=== PATIENT | male | born 1995 | race Two or more races ===

== ENCOUNTER 2018-10-01 01:01 | Emergency (ER) | payer BC, OTHER ==
[~2018-10-01] VITALS: Ht 175.3 cm; Wt 52.2 kg
[2018-10-01 01:11] VITALS: BP 138/91
[2018-10-01 01:33] LABS: Basophils # (auto) 0.1 uL; Basophils % (auto) 1.6 % (0.0-2.0); Eosinophils # (auto) 0 uL; Hematocrit 48.1 % (41.0-53.0); Hemoglobin 16.5 g/dL (13.5-17.5); Lymphocytes # (auto) 0.4 uL; Lymphocytes % (auto) 5.7 % (10.0-50.0); Mean Corpuscular Hemoglobin 31.9 pg (28.0-32.0); Mean Corpuscular Hgb Conc. 34.4 g/dL (32.0-36.0); Mean Corpuscular Volume 92.7 fL (80.0-100.0); Monocytes # (auto) 0.5 uL; Monocytes % (auto) 6.9 % (0.0-12.0); Neutrophils # (auto) 6.5 uL; Neutrophils % (auto) 85.8 % (37.0-80.0); Nucleated Red Blood Cells % 0.1 %; Platelet Count (auto) 255 10^3/uL (140-450); Red Blood Cells 5.19 10^6/uL (4.5-5.90); Red Cell Distribution Width 13.3 % (11.8-14.3); White Blood Cell 7.5 10^3/uL (4.4-10.8)
[2018-10-01 01:52] LABS: Albumin 3.9 g/dL (3.4-5.0); Potassium 4.1 mmol/L (3.5-5.1)
[2018-10-01 01:55] LABS: BUN/Creatinine Ratio 7.2; Calcium 9.1 mg/dL (8.5-10.1)
[2018-10-01 02:00] LABS: Bilirubin, Total 1.2 mg/dL (0.2-1.0); Total Protein 8.3 g/dL (6.4-8.2)
== END 2018-10-02 02:31 | disposition left against medical advice (07) ==
LOC: ER 01:05
DX: R10.9 Unspecified abdominal pain (principal); Z53.21 Procedure and treatment not carried out due to patient leaving prior to being seen by health care provider
CPT/HCPCS: 36415; 80053; 83690; 85025

== ENCOUNTER 2018-11-15 15:17 | Inpatient (IN) | payer BC ==
[~2018-11-15] VITALS: Ht 205.7 cm; Wt 52.2 kg
[2018-11-15] MEDS ORDERED: SODIUM CHLORIDE 0.9% 1,000 ML IV ONE ×2 (15:52)
[2018-11-15 16:15] LABS: Basophils # (auto) 0.1 uL; Basophils % (auto) 1.2 % (0.0-2.0); Eosinophils # (auto) 0.2 uL; Eosinophils % (auto) 2.8 % (0.0-7.0); Hematocrit 41.1 % (41.0-53.0); Hemoglobin 13.7 g/dL (13.5-17.5); Lymphocytes # (auto) 1.6 uL; Lymphocytes % (auto) 29.7 % (10.0-50.0); Mean Corpuscular Hemoglobin 30.3 pg (28.0-32.0); Mean Corpuscular Hgb Conc. 33.3 g/dL (32.0-36.0); Mean Corpuscular Volume 90.8 fL (80.0-100.0); Monocytes # (auto) 0.5 uL; Monocytes % (auto) 8.8 % (0.0-12.0); Neutrophils # (auto) 3.1 uL; Neutrophils % (auto) 57.5 % (37.0-80.0); Nucleated Red Blood Cells % 0.2 %; Platelet Count (auto) 238 10^3/uL (140-450); Red Blood Cells 4.52 10^6/uL (4.5-5.90); Red Cell Distribution Width 13.5 % (11.8-14.3); White Blood Cell 5.4 10^3/uL (4.4-10.8)
[2018-11-15 16:27] LABS: Albumin 3.7 g/dL (3.4-5.0); BUN/Creatinine Ratio 23.3; Calcium 8.9 mg/dL (8.5-10.1); Potassium 4.4 mmol/L (3.5-5.1)
[2018-11-15 16:29] LABS: Amylase 77 U/L (25-115); Bilirubin, Total 0.2 mg/dL (0.2-1.0); Lipase 218 U/L (73-393); Total Protein 7.9 g/dL (6.4-8.2)
[2018-11-15 17:41] LABS: Urine WBC None Seen /hpf (0 - 3)
[2018-11-15] MEDS ORDERED: ONDANSETRON HCL 4 MG/2 ML VIAL IV ONE ×2 (17:45→21:00)
[2018-11-15] MEDS ORDERED: MORPHINE SULFATE 4 MG/ML SYR/VIAL IV ONE ×2 (17:45→21:00)
[2018-11-15 17:59] LABS: Urine Bacteria NONE SEEN /hpf (None Seen); Urine Blood Negative /uL (Negative); Urine Specific Gravity 1.012 (1.001-1.035)
[2018-11-15] MEDS ORDERED: ONDANSETRON HCL 4 MG/2 ML VIAL IV PRN (22:15)
[2018-11-15] MEDS: SODIUM CHLORIDE 0.9% 1,000 ML IV SCH (22:15)
[2018-11-15] MEDS ORDERED: ACETAMINOPHEN 500 MG TAB PO PRN (22:15)
[2018-11-15] MEDS: metroNIDAZOLE 500MG/100ML 100 ML IV SCH (22:42)
[2018-11-15 23:30] VITALS: BP 124/66
[2018-11-16] MEDS: HYDROmorphone HCL 2 MG/ML VL IV PRN ×3 (00:11→09:20)
[2018-11-16 00:30] VITALS: BP 124/66
[2018-11-16 05:00] VITALS: BP 112/58
[2018-11-16] MEDS: metroNIDAZOLE 500MG/100ML 100 ML IV SCH ×2 (05:33→13:38)
[2018-11-16 06:40] LABS: Basophils # (auto) 0.1 uL; Basophils % (auto) 1.6 % (0.0-2.0); Eosinophils # (auto) 0.2 uL; Eosinophils % (auto) 5.4 % (0.0-7.0); Hematocrit 36.6 % (41.0-53.0); Hemoglobin 12.7 g/dL (13.5-17.5); Lymphocytes # (auto) 1.4 uL; Lymphocytes % (auto) 35.2 % (10.0-50.0); Mean Corpuscular Hemoglobin 30.9 pg (28.0-32.0); Mean Corpuscular Hgb Conc. 34.6 g/dL (32.0-36.0); Mean Corpuscular Volume 89.4 fL (80.0-100.0); Monocytes # (auto) 0.5 uL; Monocytes % (auto) 12.9 % (0.0-12.0); Neutrophils # (auto) 1.8 uL; Neutrophils % (auto) 44.9 % (37.0-80.0); Nucleated Red Blood Cells % 0.1 %; Platelet Count (auto) 205 10^3/uL (140-450); Red Blood Cells 4.09 10^6/uL (4.5-5.90); White Blood Cell 3.9 10^3/uL (4.4-10.8)
[2018-11-16 06:51] LABS: BUN/Creatinine Ratio 21.3; Calcium 8.3 mg/dL (8.5-10.1)
--- NOTE | 2018-11-16 08:30 | NUR ---
RE: DIET PATIENT IS CURRENTLY ON A LIQUID DIET. PATIENT TOLERATING FOOD WELL, NO NAUSEA OR VOMITING.
[2018-11-16 09:00] VITALS: BP 108/53
[2018-11-16] MEDS: SODIUM CHLORIDE 0.9% 1,000 ML IV SCH ×2 (09:37→18:46)
[2018-11-16] MEDS ORDERED: LEVOFLOXACIN 500MG 100 ML IV SCH (10:00)
--- NOTE | 2018-11-16 12:04 | NUR ---
RE: DIET PATIENT ON A CLEAR LIQUID DIET. PATIENT HAS BEEN TOLERATING FOOD WELL, NO NAUSEA OR VOMITING. PER MD CAN ADVANCE TO SOFT FOODS IF TOLERATING FOOD WELL. ORDERS WILL BE FOLLOWED.
[2018-11-16] MEDS ORDERED: HYDROcodone-ACET 10/325MG TAB PO PRN (12:45)
[2018-11-16 13:00] VITALS: BP 109/69
--- NOTE | 2018-11-16 16:19 | NUR ---
Re: Pain medication Patient stated that they are experience itchiness all over their body. Patient stated that that's how they get when they take norco at home. Patient received norco at 1338. Assess patient is not experiencing SOB or nausea or vomiting or chest pain. Will contact MD for further evaluation.
[2018-11-16 17:00] VITALS: BP 109/45
[2018-11-16] MEDS ORDERED: diphenhdrAMINE HCL 25 MG CAP PO PRN (17:00)
--- NOTE | 2018-11-16 19:50 | NUR ---
pt stated he was going to leav the hospital. educated the pt on the need to stay. pt verbalized understanding but still wanted to leave. pt signed AMA. paged Dr. Rosa. awaiting call back.
--- NOTE | 2018-11-16 20:00 | NUR ---
notified the Dr. Rosa. called and notified feeder worker power unit operator Helen. PT iv removed. pt left with his grandmother.
== END 2018-11-16 20:00 | disposition left against medical advice (07) | DRG 440 ==
LOC: ER 15:17 → OVERFLOW 15:18 → WEST WING 23:17
PROVIDERS: ADMIT Nurse Practitioner Family; ATTEND Nurse Practitioner Family
PROC: 02HV33Z Insertion of Infusion Device into Superior Vena Cava, Percutaneous Approach (ICD-10-PCS; principal; 2018-11-15)
DX: K86.3 Pseudocyst of pancreas (principal); Z72.0 Tobacco use; Z87.19 Personal history of other diseases of the digestive system; Z53.21 Procedure and treatment not carried out due to patient leaving prior to being seen by health care provider
CPT/HCPCS: 36415; 71046; 74176; 80048; 80053; 81001; 82150; 83690; 85025; 87081; 96374; 96375; 96376; G0378; J1956; J2405; J3490

== ENCOUNTER 2018-11-27 01:04 | Emergency (ER) | payer BC ==
[~2018-11-27] VITALS: Ht 175.3 cm; Wt 52.2 kg
[2018-11-27] MEDS ORDERED: IOHEXOL 350 MG/ML 100ML IJ ONE (01:26)
[2018-11-27 02:08] LABS: Basophils # (auto) 0 uL; Basophils % (auto) 0.8 % (0.0-2.0); Eosinophils # (auto) 0 uL; Eosinophils % (auto) 0.6 % (0.0-7.0); Hematocrit 41.7 % (41.0-53.0); Hemoglobin 14.1 g/dL (13.5-17.5); Lymphocytes # (auto) 2.8 uL; Lymphocytes % (auto) 45.4 % (10.0-50.0); Mean Corpuscular Hemoglobin 30.2 pg (28.0-32.0); Mean Corpuscular Hgb Conc. 33.9 g/dL (32.0-36.0); Monocytes # (auto) 0.5 uL; Monocytes % (auto) 7.8 % (0.0-12.0); Neutrophils # (auto) 2.8 uL; Neutrophils % (auto) 45.4 % (37.0-80.0); Nucleated Red Blood Cells % 0.1 %; Platelet Count (auto) 300 10^3/uL (140-450); Red Blood Cells 4.68 10^6/uL (4.5-5.90); Red Cell Distribution Width 13.2 % (11.8-14.3); White Blood Cell 6.2 10^3/uL (4.4-10.8)
[2018-11-27] MEDS ORDERED: MORPHINE SULFATE 4 MG/ML SYR/VIAL IV ONE (02:15)
[2018-11-27] MEDS ORDERED: ONDANSETRON HCL 4 MG/2 ML VIAL IV ONE (02:15)
[2018-11-27 02:28] LABS: Albumin 3.9 g/dL (3.4-5.0); Calcium 7.5 mg/dL (8.5-10.1); Chloride 108 mmol/L (98-107); Sodium 144 mmol/L (136-145)
[2018-11-27 02:31] LABS: Alanine Aminotransferase 93 U/L (16-61); Anion Gap 13 (5-15); Aspartate Aminotransferase 58 U/L (15-37); Blood Urea Nitrogen 5 mg/dL (7-18); Carbon Dioxide 23 mmol/L (21-32); GFR African American 180 mL/min; GFR Non-African American 149 mL/min; Glucose 108 mg/dL (74-106); INR 0.94 (0.9-1.15); Magnesium 2.4 mg/dL (1.6-2.6); Partial Thromboplastin Time 24.5 sec (23.64-32.05)
[2018-11-27 02:36] LABS: Alkaline Phosphatase 102 U/L (45-117); Bilirubin, Total 0.2 mg/dL (0.2-1.0); Total Protein 7.9 g/dL (6.4-8.2)
[2018-11-27] MEDS ORDERED: HYDROmorphone HCL 2 MG/ML VL IV ONE (02:45)
[2018-11-27] MEDS ORDERED: LORazepam 2MG/ML-1ML VIAL IV ONE (04:00)
[2018-11-27] MEDS ORDERED: HYDROcodone-ACET 5/325MG TAB PO ONE (06:30)
[2018-11-27] MEDS ORDERED: POTASSIUM EFFERVESENT TAB 25 MEQ PO ONE (07:45)
[2018-11-27 08:54] VITALS: BP 123/93
[2018-11-27] MEDS ORDERED: PROMETHAZINE HCL 25 MG/ML 1ML IV ONE (09:30)
== END 2018-11-27 10:29 | disposition home or self-care (01) ==
LOC: ER 01:05
DX: R07.89 Other chest pain (principal); M79.641 Pain in right hand; K86.2 Cyst of pancreas
CPT/HCPCS: 36415; 71275; 80053; 83690; 83735; 84484; 85025; 85379; 85610; 85730; 93005; 93971; 96374; 96375; 99284; J1170; J2060; J2270; J2405; J2550; Q9967

== ENCOUNTER 2018-12-10 01:53 | Inpatient (IN) | payer BC ==
[~2018-12-10] VITALS: Ht 175.3 cm; Wt 62.4 kg
[2018-12-10 02:37] LABS: Basophils # (auto) 0.1 uL; Basophils % (auto) 1.2 % (0.0-2.0); Eosinophils # (auto) 0.1 uL; Eosinophils % (auto) 2.1 % (0.0-7.0); Hematocrit 42.1 % (41.0-53.0); Hemoglobin 14.6 g/dL (13.5-17.5); Lymphocytes # (auto) 1.2 uL; Lymphocytes % (auto) 29.6 % (10.0-50.0); Mean Corpuscular Hemoglobin 30.8 pg (28.0-32.0); Mean Corpuscular Hgb Conc. 34.7 g/dL (32.0-36.0); Mean Corpuscular Volume 88.9 fL (80.0-100.0); Monocytes # (auto) 0.5 uL; Monocytes % (auto) 11.5 % (0.0-12.0); Neutrophils # (auto) 2.3 uL; Neutrophils % (auto) 55.6 % (37.0-80.0); Nucleated Red Blood Cells % 0.1 %; Platelet Count (auto) 255 10^3/uL (140-450); Red Blood Cells 4.73 10^6/uL (4.5-5.90); Red Cell Distribution Width 13.2 % (11.8-14.3); White Blood Cell 4.2 10^3/uL (4.4-10.8)
[2018-12-10 02:55] LABS: Albumin 3.6 g/dL (3.4-5.0); Anion Gap 12 (5-15); Calcium 8.1 mg/dL (8.5-10.1); Carbon Dioxide 24 mmol/L (21-32); Chloride 108 mmol/L (98-107); Glucose 101 mg/dL (74-106); Potassium 3.6 mmol/L (3.5-5.1); Sodium 144 mmol/L (136-145)
[2018-12-10 03:01] LABS: Alanine Aminotransferase 126 U/L (16-61); Alkaline Phosphatase 112 U/L (45-117); Aspartate Aminotransferase 90 U/L (15-37); BUN/Creatinine Ratio 13.4; Bilirubin, Total < 0.1 mg/dL (0.2-1.0); Blood Urea Nitrogen 9 mg/dL (7-18); GFR African American 193 mL/min; GFR Non-African American 159 mL/min; Total Protein 7.8 g/dL (6.4-8.2)
[2018-12-10] MEDS ORDERED: MORPHINE SULFATE 4 MG/ML SYR/VIAL IV ONE ×3 (04:45→07:15)
[2018-12-10] MEDS ORDERED: ONDANSETRON HCL 4 MG/2 ML VIAL IV ONE ×2 (04:45→06:15)
[2018-12-10 05:16] LABS: Urine Bacteria FEW /hpf (None Seen); Urine Blood Negative /uL (Negative); Urine Hyaline Cast FEW /lpf (0 - 2); Urine Mucus FEW (None Seen); Urine Specific Gravity 1.024 (1.001-1.035); Urine WBC 2 /hpf (0 - 3)
[2018-12-10 05:27] LABS: Amphetamine Screen, Urine NEGATIVE (NEGATIVE); Barbiturate Scree,Urine NEGATIVE (NEGATIVE); Benzodiazephine Screen, Urine NEGATIVE (NEGATIVE); Cannabinoid Screen, Urine POSITIVE (NEGATIVE); Cocaine Screen, Urine NEGATIVE (NEGATIVE); Opiate Scree,Urine NEGATIVE (NEGATIVE); Phencyclidine Screen, Urine NEGATIVE (NEGATIVE)
[2018-12-10 05:27] LABS: Amylase 88 U/L (25-115); Lipase 168 U/L (73-393)
[2018-12-10] MEDS ORDERED: IOHEXOL 350 MG/ML 100ML IJ ONE (06:15)
[2018-12-10] MEDS ORDERED: SODIUM CHLORIDE 0.9% 1,000 ML IV ONE ×2 (07:04)
[2018-12-10] MEDS ORDERED: THIAMINE 100mg/ml INJ (200mg/2ml VIAL) IV ONE (07:15)
[2018-12-10] MEDS ORDERED: IOHEXOL 300 MG/ML 100ML BOTTLE IJ ONE (08:31)
[2018-12-10] MEDS ORDERED: MORPHINE SULF INJ 2 MG/ML SYRINGE 1ML IV PRN ×2 (08:45)
[2018-12-10] MEDS: SODIUM CHLORIDE 0.9% 1,000 ML IV SCH ×2 (08:45→18:10)
[2018-12-10] MEDS ORDERED: NITROGLYCERIN 0.4 MG SL TAB SL PRN (08:45)
[2018-12-10] MEDS ORDERED: ONDANSETRON HCL 4 MG/2 ML VIAL IV PRN (08:45)
[2018-12-10] MEDS ORDERED: HYDROcodone-ACET 5/325MG TAB PO PRN (08:45)
[2018-12-10] MEDS ORDERED: ACETAMINOPHEN 325 MG TAB PO PRN (08:45)
[2018-12-10] MEDS: PANTOPRAZOLE 40 MG/10 ML VIAL INJ IV SCH (11:10)
[2018-12-10] MEDS: HYDROmorphone HCL 2 MG/ML VL IV PRN ×3 (11:47→21:51)
--- NOTE | 2018-12-10 16:20 | NUR ---
PATIENT ARRIVED TO UNIT PATIENT ALERT AND ORIENTED X4 DENIES CHEST PAIN AT THIS TIME. ORIENTED PATIENT TO UNIT,STAFF, CALL LIGHT, VISITING HOURS, AND SMOKING RULES. POC DISCUSSED. PATIENT VERBALIZED UNDERSTANDING. BED IS IN LOWEST LOCKED POSITION CALL LIGHT WITHIN REACH. PATIENT DENIES SOB, OR ANY DISTRESS AT THIS TIME. WILL CONTINUE TO MONITOR
[2018-12-10 17:21] VITALS: BP 118/71
--- NOTE | 2018-12-10 18:57 | NUR ---
END OF SHIFT NOTE PATIENT ALERT AND ORIENTED X4 FAMILY AND FRIENDS AT BEDSIDE. PATIENT DENIES CHEST PAIN, AND SOB BUT C/O HEADACHE, PATIENT VERBALIZED THAT THE DILAUDID THAT WAS GIVEN TOOK AWAY HIS ABDOMINAL PAIN BUT NOT HIS HEADACHE. PATIENT DENIED ALTERNATIVE METHODS FOR PAIN MANAGEMENT PATIENT STATED HE WILL REST HIS EYES. BED IN LOWEST LOCKED POSITION CALL LIGHT WITH IN REACH. ENDORSE CARE TO NOC RN
--- NOTE | 2018-12-10 19:40 | NUR ---
Opening Shift Note Assumed care of patient, awake and alert. No S/S of distress/SOB. Instructed on POC and to call for assist PRN, will continue to monitor for changes Q1hr and PRN.
[2018-12-10 22:05] VITALS: BP 131/72
[2018-12-11] MEDS: HYDROmorphone HCL 2 MG/ML VL IV PRN ×5 (01:36→22:22)
[2018-12-11] MEDS: SODIUM CHLORIDE 0.9% 1,000 ML IV SCH ×2 (01:38→09:02)
[2018-12-11 05:00] VITALS: BP 122/68
[2018-12-11 06:12] LABS: Basophils # (auto) 0 uL; Basophils % (auto) 1.2 % (0.0-2.0); Eosinophils # (auto) 0.2 uL; Eosinophils % (auto) 4.8 % (0.0-7.0); Hematocrit 38.7 % (41.0-53.0); Hemoglobin 13.3 g/dL (13.5-17.5); Lymphocytes # (auto) 1.5 uL; Lymphocytes % (auto) 37.3 % (10.0-50.0); Mean Corpuscular Hemoglobin 30.8 pg (28.0-32.0); Mean Corpuscular Hgb Conc. 34.3 g/dL (32.0-36.0); Monocytes # (auto) 0.5 uL; Monocytes % (auto) 12.5 % (0.0-12.0); Neutrophils # (auto) 1.8 uL; Neutrophils % (auto) 44.2 % (37.0-80.0); Nucleated Red Blood Cells % 0.1 %; Platelet Count (auto) 211 10^3/uL (140-450); Red Cell Distribution Width 13.3 % (11.8-14.3)
[2018-12-11 06:20] LABS: BUN/Creatinine Ratio 9.7; Calcium 8.3 mg/dL (8.5-10.1)
[2018-12-11 06:23] LABS: Bilirubin, Total 0.4 mg/dL (0.2-1.0); Total Protein 6.6 g/dL (6.4-8.2)
--- NOTE | 2018-12-11 07:03 | NUR ---
patient is alert and oriented x4 with no distress noted, respirations are unlabored, lying in bed with friend at bedside. he verbalized when he receives tpn at home he feels , chest pressure. the picc line has bee3n inplace for about three months, he repositions himself, he verbalized he wants to sign an ama form to go outside to smoke.
[2018-12-11 09:00] VITALS: BP 125/78
[2018-12-11] MEDS: PANTOPRAZOLE 40 MG/10 ML VIAL INJ IV SCH (10:00)
[2018-12-11 13:00] VITALS: BP 131/84
[2018-12-11 17:00] VITALS: BP 140/70
--- NOTE | 2018-12-11 17:23 | NUR ---
picc line to right upper arm removed, patient tolerated well, denies sob, no pain.
--- NOTE | 2018-12-11 17:51 | NUR ---
mother arrived to bedside, she verbalized to me that the patient is in too much pain to be taken home. i called and spoke to dr holman, he verbalized he spoke to the patient in great length about having to quit drinking alcohol to avoid the these complications and pain, he verbalized that he would only be given tylenol at discharge, will re evaluate patient tomorrow, hold discharge until tomorrow.
--- NOTE | 2018-12-11 20:15 | NUR ---
Patient has left the unit to smoke. Patient has been educated about the risks of smoking AMA.
[2018-12-11 22:00] VITALS: BP 129/78
--- NOTE | 2018-12-11 22:15 | NUR ---
The patient reports having severe abdominal pain. He states that his pain is currently 9/10. Will treat with PRN pain medication.
[2018-12-12] MEDS: SODIUM CHLORIDE 0.9% 1,000 ML IV SCH ×2 (00:45→08:45)
--- NOTE | 2018-12-12 02:35 | NUR ---
The patient reports having severe abdominal pain. He states that his pain is getting worse. Currently rates his pain 10/10. Will treat with PRN pain medication.
[2018-12-12] MEDS: HYDROmorphone HCL 2 MG/ML VL IV PRN ×4 (02:44→13:35)
[2018-12-12 05:00] VITALS: BP 125/83
--- NOTE | 2018-12-12 08:00 | NUR ---
Opening Shift Note Assumed care of patient, awake and alert. No S/S of distress/SOB. Patient stated that was pain was at 4/10 in the lower abdomen. Patient medication given by weight shifter nurse. Patient reports tolerates diet well. Call light within reached, will continue to monitor.
[2018-12-12 09:00] VITALS: BP 131/82
[2018-12-12] MEDS: PANTOPRAZOLE 40 MG/10 ML VIAL INJ IV SCH (09:31)
--- NOTE | 2018-12-12 09:34 | NUR ---
Doctor Rosa at bedside to see patient, doctor discussed plan of care with patient, and received orders to discharge patient after 1200.
[2018-12-12 12:58] VITALS: BP 139/74
--- NOTE | 2018-12-12 13:06 | NUR ---
Discharge instructions given as ordered. Encourage to follow up with PMD and GI doctor as instructed. All questions and concerns addressed. Patient verbalized understanding. Medication reconciliation form completed and copy given to patient. No home medications held in Pharmacy, and no needed vaccines to be given. Patients new prescription taken to [facility], as per patient he will picker packer his medications after discharge. Patient waiting for family to pick him up.
--- NOTE | 2018-12-12 14:30 | NUR ---
IV removed with catheter intact, pressure dressing applied. Patient walked to his vehicle with all personal belongings, accompanied by family member. No distress noted at time of departure.
== END 2018-12-12 14:30 | disposition home or self-care (01) | DRG 440 ==
LOC: ER 01:54 → OVERFLOW 01:55 → WEST WING 16:27
PROVIDERS: ADMIT Internal Medicine; ATTEND Internal Medicine
DX: K85.21 Alcohol induced acute pancreatitis with uninfected necrosis (principal); K44.9 Diaphragmatic hernia without obstruction or gangrene; R16.0 Hepatomegaly, not elsewhere classified; F10.10 Alcohol abuse, uncomplicated; Y90.9 Presence of alcohol in blood, level not specified; K86.0 Alcohol-induced chronic pancreatitis; F12.10 Cannabis abuse, uncomplicated; Z71.41 Alcohol abuse counseling and surveillance of alcoholic; Z88.5 Allergy status to narcotic agent
CPT/HCPCS: 36415; 71045; 71275; 74176; 80053; 80307; 81001; 82150; 83690; 83880; 84484; 85025; 85379; 93005; C9113; G0378; J2405

== ENCOUNTER 2019-03-16 17:43 | Emergency (ER) | payer BC ==
[~2019-03-16] VITALS: Ht 170.2 cm; Wt 68.0 kg
[2019-03-16 18:10] VITALS: BP 138/79
[2019-03-16 18:54] LABS: Basophils # (auto) 0 uL; Basophils % (auto) 0.9 % (0.0-2.0); Eosinophils # (auto) 0 uL; Eosinophils % (auto) 0.7 % (0.0-7.0); Hematocrit 44.6 % (41.0-53.0); Hemoglobin 15.2 g/dL (13.5-17.5); Lymphocytes # (auto) 1.9 uL; Lymphocytes % (auto) 35.5 % (10.0-50.0); Mean Corpuscular Hemoglobin 30.2 pg (28.0-32.0); Mean Corpuscular Volume 88.8 fL (80.0-100.0); Monocytes # (auto) 0.5 uL; Monocytes % (auto) 9.9 % (0.0-12.0); Neutrophils # (auto) 2.9 uL; Nucleated Red Blood Cells % 0.1 %; Platelet Count (auto) 283 10^3/uL (140-450); Red Blood Cells 5.03 10^6/uL (4.5-5.90); White Blood Cell 5.5 10^3/uL (4.4-10.8)
[2019-03-16 19:14] LABS: Salicylate 1.8 mg/dL (2.8-20.0)
[2019-03-16 19:15] LABS: Urine Bacteria NONE SEEN /hpf (None Seen); Urine Blood Negative /uL (Negative); Urine Specific Gravity 1.002 (1.001-1.035); Urine WBC <1 /hpf (0 - 3)
[2019-03-16 19:21] LABS: Acetaminophen < 2.0 ug/mL (10-30)
[2019-03-16 19:25] LABS: Albumin 4.4 g/dL (3.4-5.0); Calcium 8.7 mg/dL (8.5-10.1); Potassium 3.7 mmol/L (3.5-5.1)
[2019-03-16 19:27] LABS: Amphetamine Screen, Urine NEGATIVE (NEGATIVE); Barbiturate Scree,Urine NEGATIVE (NEGATIVE); Benzodiazephine Screen, Urine NEGATIVE (NEGATIVE); Cannabinoid Screen, Urine NEGATIVE (NEGATIVE); Cocaine Screen, Urine NEGATIVE (NEGATIVE); Opiate Scree,Urine NEGATIVE (NEGATIVE); Phencyclidine Screen, Urine NEGATIVE (NEGATIVE)
[2019-03-16 19:35] LABS: BUN/Creatinine Ratio 6.7
[2019-03-16 19:36] LABS: Bilirubin, Total 0.2 mg/dL (0.2-1.0); Total Protein 8.5 g/dL (6.4-8.2)
== END 2019-03-16 23:58 | disposition left against medical advice (07) ==
LOC: ER 17:47
DX: F10.129 Alcohol abuse with intoxication, unspecified (principal); Y90.0 Blood alcohol level of less than 20 mg/100 ml; Z53.21 Procedure and treatment not carried out due to patient leaving prior to being seen by health care provider
CPT/HCPCS: 36415; 80053; 80307; 80320; 80329; 81001; 85025; 93005

== ENCOUNTER 2019-09-18 18:20 | Emergency (ER) | payer BC ==
[~2019-09-18] VITALS: Ht 172.7 cm; Wt 63.5 kg
[~2019-09-18 18:20] MED LIST: FOLI1TAB6 PO; HYDR-531 PO; LEVO500T21 PO; MET500T PO; PANT40TA2 PO; THIA100T10 PO
[2019-09-18] MEDS ORDERED: THIAMINE INJ 100 MG in SODIUM CHLORIDE 0.9% 1,000 ML IV ONE (18:45)
[2019-09-18] MEDS ORDERED: ONDANSETRON HCL 4 MG/2 ML VIAL IV ONE (18:45)
[2019-09-18] MEDS ORDERED: MORPHINE SULF INJ 2 MG/ML SYRINGE 1ML IV ONE ×2 (18:45→21:15)
[2019-09-18] MEDS ORDERED: SODIUM CHLORIDE 0.9% 1,000 ML IV ONE ×2 (19:15→21:30)
[2019-09-18 19:27] LABS: Basophils # (auto) 0 10 ^3/uL (0-0.2); Basophils % (auto) 1.2 % (0.0-2.0); Eosinophils # (auto) 0.1 10 ^3/uL (0-0.8); Eosinophils % (auto) 1.4 % (0.0-7.0); Hematocrit 47.5 % (41.0-53.0); Hemoglobin 15.5 g/dL (13.5-17.5); Lymphocytes # (auto) 1.8 10 ^3/uL (0.4-5.4); Lymphocytes % (auto) 48.5 % (10.0-50.0); Mean Corpuscular Hemoglobin 30.3 pg (28.0-32.0); Mean Corpuscular Hgb Conc. 32.6 g/dL (32.0-36.0); Mean Corpuscular Volume 92.9 fL (80.0-100.0); Monocytes # (auto) 0.4 10 ^3/uL (0-1.3); Monocytes % (auto) 10.9 % (0.0-12.0); Neutrophils # (auto) 1.4 10 ^3/uL (1.6-8.6); Nucleated Red Blood Cells % 0.1 %; Platelet Count (auto) 245 10^3/uL (140-450); Red Blood Cells 5.11 10^6/uL (4.5-5.90); Red Cell Distribution Width 14.4 % (11.8-14.3); White Blood Cell 3.7 10^3/uL (4.4-10.8)
[2019-09-18 19:37] LABS: INR 1.01 (0.9-1.15); Partial Thromboplastin Time 24.5 sec (23.64-32.05)
[2019-09-18 19:41] LABS: Albumin 3.9 g/dL (3.4-5.0); Amylase 87 U/L (25-115); Anion Gap 8 (5-15); Blood Urea Nitrogen 5 mg/dL (7-18); Carbon Dioxide 25 mmol/L (21-32); Chloride 108 mmol/L (98-107); Glucose 95 mg/dL (74-106); Lipase 396 U/L (73-393); Potassium 3.9 mmol/L (3.5-5.1); Sodium 141 mmol/L (136-145)
[2019-09-18 19:49] LABS: Alanine Aminotransferase 146 U/L (16-61); Alkaline Phosphatase 92 U/L (45-117); Aspartate Aminotransferase 165 U/L (15-37); BUN/Creatinine Ratio 7.1; Bilirubin, Total 0.3 mg/dL (0.2-1.0); GFR African American 181 mL/min; GFR Non-African American 150 mL/min; Total Protein 8.1 g/dL (6.4-8.2)
[2019-09-18 20:16] LABS: Lactic Acid w/Reflex 2.2 mmol/L (0.4-2.0)
[2019-09-18] MEDS ORDERED: IOHEXOL 300 MG/ML 100ML BOTTLE IJ ONE (21:05)
[2019-09-18 22:57] VITALS: BP 121/64
== END 2019-09-18 23:05 | disposition home or self-care (01) ==
LOC: ER 18:20 → EDBD 18:20 → ER 23:05
DX: K86.1 Other chronic pancreatitis (principal); F10.129 Alcohol abuse with intoxication, unspecified; K70.30 Alcoholic cirrhosis of liver without ascites; Y90.9 Presence of alcohol in blood, level not specified; Z88.6 Allergy status to analgesic agent
CPT/HCPCS: 36415; 74177; 80053; 80320; 82150; 83605; 83690; 84484; 85025; 85610; 85730; 96361; 96374; 96375; 96376; 99285; J2270; J2405; J7030; Q9967

== ENCOUNTER 2019-10-09 22:58 | Emergency (ER) | payer BC ==
[~2019-10-09] VITALS: Ht 172.7 cm; Wt 54.4 kg
[2019-10-09 23:52] LABS: Basophils # (auto) 0.1 10 ^3/uL (0-0.2); Basophils % (auto) 1.4 % (0.0-2.0); Eosinophils # (auto) 0 10 ^3/uL (0-0.8); Eosinophils % (auto) 1.1 % (0.0-7.0); Hematocrit 52.2 % (41.0-53.0); Hemoglobin 17.3 g/dL (13.5-17.5); Mean Corpuscular Hemoglobin 30.7 pg (28.0-32.0); Mean Corpuscular Hgb Conc. 33.1 g/dL (32.0-36.0); Mean Corpuscular Volume 92.6 fL (80.0-100.0); Monocytes # (auto) 0.4 10 ^3/uL (0-1.3); Monocytes % (auto) 7.9 % (0.0-12.0); Neutrophils % (auto) 44.6 % (37.0-80.0); Nucleated Red Blood Cells % 0.2 %; Platelet Count (auto) 317 10^3/uL (140-450); Red Blood Cells 5.64 10^6/uL (4.5-5.90); Red Cell Distribution Width 14.2 % (11.8-14.3); White Blood Cell 4.5 10^3/uL (4.4-10.8)
[2019-10-09] MEDS ORDERED: SODIUM CHLORIDE 0.9% 1,000 ML IVB ONE (23:56)
[2019-10-10 00:10] LABS: Albumin 4.3 g/dL (3.4-5.0); BUN/Creatinine Ratio 6.8; Calcium 8.2 mg/dL (8.5-10.1); Potassium 3.6 mmol/L (3.5-5.1)
[2019-10-10 00:19] LABS: Bilirubin, Total 0.2 mg/dL (0.2-1.0); Total Protein 8.6 g/dL (6.4-8.2)
[2019-10-10] MEDS ORDERED: LIDOCAINE VISCOUS 2% 15ML UD PO ONE (01:15)
[2019-10-10] MEDS ORDERED: ALUM & MAG HYDROX-SIMETH LIQ(MAALOX) 30 ML PO ONE (01:15)
[2019-10-10] MEDS ORDERED: ONDANSETRON HCL 4 MG/2 ML VIAL IV ONE ×2 (03:00)
[2019-10-10 04:00] VITALS: BP 110/70
[2019-10-10] MEDS ORDERED: MORPHINE SULFATE 4 MG/ML SYR/VIAL IV ONE ×2 (04:15)
== END 2019-10-10 04:09 | disposition home or self-care (01) ==
LOC: ER 22:59
DX: K85.20 Alcohol induced acute pancreatitis without necrosis or infection (principal); R11.2 Nausea with vomiting, unspecified; Z88.8 Allergy status to other drugs, medicaments and biological substances; Z79.899 Other long term (current) drug therapy
CPT/HCPCS: 36415; 74176; 80053; 82150; 83690; 85025; 96361; 96374; 96375; 96376; 99284; J2270; J2405

== ENCOUNTER 2019-10-19 09:10 | Inpatient (IN) | payer BC ==
[~2019-10-19] VITALS: Ht 177.8 cm; Wt 59.2 kg
[2019-10-19] MEDS ORDERED: MORPHINE SULF INJ 2 MG/ML SYRINGE 1ML IV ONE ×2 (10:00→14:00)
[2019-10-19] MEDS ORDERED: PROCHLORPERAZINE EDISYLATE 5 MG/ML 2ML VIAL IV ONE (10:00)
[2019-10-19 10:04] LABS: Basophils # (auto) 0 10 ^3/uL (0-0.2); Basophils % (auto) 0.4 % (0.0-2.0); Eosinophils # (auto) 0 10 ^3/uL (0-0.8); Eosinophils % (auto) 0.1 % (0.0-7.0); Hematocrit 46.6 % (41.0-53.0); Hemoglobin 15.6 g/dL (13.5-17.5); Lymphocytes # (auto) 1.3 10 ^3/uL (0.4-5.4); Lymphocytes % (auto) 14.6 % (10.0-50.0); Mean Corpuscular Hemoglobin 30.9 pg (28.0-32.0); Mean Corpuscular Hgb Conc. 33.5 g/dL (32.0-36.0); Mean Corpuscular Volume 92.4 fL (80.0-100.0); Monocytes # (auto) 0.4 10 ^3/uL (0-1.3); Monocytes % (auto) 4.4 % (0.0-12.0); Neutrophils # (auto) 7.3 10 ^3/uL (1.6-8.6); Neutrophils % (auto) 80.5 % (37.0-80.0); Platelet Count (auto) 291 10^3/uL (140-450); Red Blood Cells 5.05 10^6/uL (4.5-5.90); Red Cell Distribution Width 14.2 % (11.8-14.3); White Blood Cell 9.1 10^3/uL (4.4-10.8)
[2019-10-19 10:22] LABS: Albumin 3.9 g/dL (3.4-5.0); Amylase 590 U/L (25-115); Anion Gap 12 (5-15); Blood Urea Nitrogen 4 mg/dL (7-18); Calcium 7.6 mg/dL (8.5-10.1); Carbon Dioxide 23 mmol/L (21-32); Chloride 109 mmol/L (98-107); Glucose 172 mg/dL (74-106); Potassium 3.3 mmol/L (3.5-5.1); Sodium 144 mmol/L (136-145)
[2019-10-19 10:28] LABS: Alanine Aminotransferase 71 U/L (16-61); Alkaline Phosphatase 83 U/L (45-117); Aspartate Aminotransferase 65 U/L (15-37); BUN/Creatinine Ratio 6.6; Bilirubin, Total 0.2 mg/dL (0.2-1.0); GFR African American 213 mL/min; GFR Non-African American 176 mL/min; Total Protein 7.5 g/dL (6.4-8.2)
[2019-10-19 10:52] LABS: Lipase 4168 U/L (73-393)
[2019-10-19] MEDS ORDERED: LORazepam 2MG/ML-1ML VIAL ONE (11:35)
[2019-10-19] MEDS ORDERED: SODIUM CHLORIDE 0.9% 1,000 ML IVB ONE (11:36)
[2019-10-19] MEDS ORDERED: LORazepam 2MG/ML-1ML VIAL IV ONE (11:45)
[2019-10-19] MEDS ORDERED: POTASSIUM EFFERVESENT TAB 25 MEQ PO ONE (13:45)
[2019-10-19] MEDS ORDERED: ONDANSETRON HCL 4 MG/2 ML VIAL IV ONE (14:00)
[2019-10-19 14:42] LABS: Urine Bacteria NONE SEEN /hpf (None Seen); Urine Blood Negative /uL (Negative); Urine Mucus FEW (None Seen); Urine Specific Gravity 1.015 (1.001-1.035); Urine WBC 2 /hpf (0 - 3)
[2019-10-19 14:53] LABS: Amphetamine Screen, Urine NEGATIVE (NEGATIVE); Barbiturate Scree,Urine NEGATIVE (NEGATIVE); Benzodiazephine Screen, Urine NEGATIVE (NEGATIVE); Cannabinoid Screen, Urine NEGATIVE (NEGATIVE); Cocaine Screen, Urine NEGATIVE (NEGATIVE); Opiate Scree,Urine POSITIVE (NEGATIVE); Phencyclidine Screen, Urine NEGATIVE (NEGATIVE)
[2019-10-19] MEDS ORDERED: PROMETHAZINE HCL 25 MG/ML 1ML ONE (16:11)
[2019-10-19] MEDS ORDERED: PROMETHAZINE HCL 25 MG/ML 1ML IV ONE (16:15)
[2019-10-19] MEDS ORDERED: ACETAMINOPHEN 325 MG TAB PO PRN (18:30)
[2019-10-19] MEDS ORDERED: LACTATED RINGER'S 1,000 ML IV ONE (18:30)
[2019-10-19] MEDS ORDERED: LORazepam 2MG/ML-1ML VIAL IV PRN (18:30)
[2019-10-19] MEDS ORDERED: NITROGLYCERIN 0.4 MG SL TAB SL PRN (18:30)
[2019-10-19] MEDS: HYDROmorphone HCL 2 MG/ML VL IV PRN ×2 (18:37→22:39)
[2019-10-19] MEDS ORDERED: POTASSIUM CHL 20MEQ/100ML 100 ML IV ONE (18:45)
[2019-10-19] MEDS: chlordiazePOXIDE HCL 25 MG CAP PO SCH (18:45)
[2019-10-20] MEDS: HYDROmorphone HCL 2 MG/ML VL IV PRN ×5 (03:02→23:59)
[2019-10-20] MEDS: chlordiazePOXIDE HCL 25 MG CAP PO SCH ×3 (03:02→21:35)
[2019-10-20 07:40] LABS: Potassium 3.6 mmol/L (3.5-5.1)
[2019-10-20 07:50] LABS: Albumin 3.1 g/dL (3.4-5.0); BUN/Creatinine Ratio 7.1; Bilirubin, Total 0.8 mg/dL (0.2-1.0); Calcium 7.9 mg/dL (8.5-10.1); Total Protein 6.4 g/dL (6.4-8.2)
[2019-10-20 08:19] LABS: Basophils # (auto) 0 10 ^3/uL (0-0.2); Basophils % (auto) 0.3 % (0.0-2.0); Eosinophils # (auto) 0 10 ^3/uL (0-0.8); Eosinophils % (auto) 0.4 % (0.0-7.0); Hematocrit 43.9 % (41.0-53.0); Hemoglobin 14.8 g/dL (13.5-17.5); Lymphocytes # (auto) 0.7 10 ^3/uL (0.4-5.4); Lymphocytes % (auto) 8.8 % (10.0-50.0); Mean Corpuscular Hemoglobin 30.9 pg (28.0-32.0); Mean Corpuscular Hgb Conc. 33.6 g/dL (32.0-36.0); Mean Corpuscular Volume 91.9 fL (80.0-100.0); Monocytes # (auto) 0.6 10 ^3/uL (0-1.3); Monocytes % (auto) 8.6 % (0.0-12.0); Neutrophils # (auto) 6.2 10 ^3/uL (1.6-8.6); Neutrophils % (auto) 81.9 % (37.0-80.0); Platelet Count (auto) 174 10^3/uL (140-450); Red Blood Cells 4.78 10^6/uL (4.5-5.90); Red Cell Distribution Width 14.1 % (11.8-14.3); White Blood Cell 7.5 10^3/uL (4.4-10.8)
[2019-10-20] MEDS ORDERED: ONDANSETRON HCL 4 MG/2 ML VIAL ONE (10:45)
[2019-10-20] MEDS: ENOXAPARIN SOD 40 MG/0.4 ML SYRINGE SC SCH (11:13)
[2019-10-20] MEDS: D5W/SOD CHL 0.45%/KCL 20MEQ 1,000 ML IV SCH ×3 (11:14→23:50)
--- NOTE | 2019-10-20 11:34 | NUR ---
PATIENT BROUGHT TO ROOM 294A. MED/SURG. PATIENT NPO, NO SIGNS/ SYMPTOMS OF DISTRESS AT THE MOMENT. WILL CONTINUE TO MONITOR.
[2019-10-20] MEDS: FOLIC ACID 1 MG, MULTIPLE VITAMIN 10 ML, MAGNESIUM SULF SDV 50% 8 MEQ, THIAMINE INJ 100... INJ SCH ×5 (12:00)
[2019-10-20 15:18] VITALS: BP 139/73
[2019-10-20 16:57] VITALS: BP 135/71
--- NOTE | 2019-10-20 19:07 | NUR ---
Opening Shift Note Assumed care of patient, awake and alert. No S/S of distress/SOB or pain. Instructed on POC and to call for assist PRN, will continue to monitor for changes Q1hr and PRN.
--- NOTE | 2019-10-20 19:45 | NUR ---
PAIN PATIENT C/O PAIN 9/10 TO THE ABDOMEN, PAIN MEDICATION ADMINISTERED.
--- NOTE | 2019-10-20 20:15 | NUR ---
RE PAIN PATIENT STATED "MY PAIN WENT DOWN TO A 3".
[2019-10-20 22:00] VITALS: BP 137/70
--- NOTE | 2019-10-20 23:59 | NUR ---
Pain Patient c/o pain 9/10 to abdomen, pain medication administered.
--- NOTE | 2019-10-21 00:29 | NUR ---
Re Pain Patient resting with eyes closed. No sign of pain or distress.
[2019-10-21] MEDS: HYDROmorphone HCL 2 MG/ML VL IV PRN ×5 (04:12→21:19)
--- NOTE | 2019-10-21 04:12 | NUR ---
Pain Patient c/o pain 9/10 to abdomen, Pain medication administered.
--- NOTE | 2019-10-21 04:42 | NUR ---
Re Pain Patient resting with eyes closed, no signs of pain or distress. will continue to monitor.
[2019-10-21 05:00] VITALS: BP 125/73
[2019-10-21] MEDS: D5W/SOD CHL 0.45%/KCL 20MEQ 1,000 ML IV SCH ×3 (06:30→17:56)
[2019-10-21 06:51] LABS: Basophils # (auto) 0 10 ^3/uL (0-0.2); Basophils % (auto) 0.6 % (0.0-2.0); Eosinophils # (auto) 0.1 10 ^3/uL (0-0.8); Hematocrit 41.4 % (41.0-53.0); Lymphocytes # (auto) 0.8 10 ^3/uL (0.4-5.4); Lymphocytes % (auto) 18.2 % (10.0-50.0); Mean Corpuscular Hemoglobin 31.1 pg (28.0-32.0); Mean Corpuscular Hgb Conc. 33.9 g/dL (32.0-36.0); Mean Corpuscular Volume 91.7 fL (80.0-100.0); Monocytes # (auto) 0.5 10 ^3/uL (0-1.3); Monocytes % (auto) 11.8 % (0.0-12.0); Neutrophils % (auto) 67.4 % (37.0-80.0); Nucleated Red Blood Cells % 0.1 %; Platelet Count (auto) 144 10^3/uL (140-450); Red Blood Cells 4.51 10^6/uL (4.5-5.90); Red Cell Distribution Width 13.6 % (11.8-14.3); White Blood Cell 4.5 10^3/uL (4.4-10.8)
--- NOTE | 2019-10-21 07:00 | NUR ---
Opening Shift Note Received report on the patient. Awake lying in bed. Patient shows no signs of distress at this time. Discussed plan of care with the patient. Bed in lowest position, side rails up x2, and the call light is within reach.
[2019-10-21 07:06] LABS: Calcium 8.1 mg/dL (8.5-10.1); Potassium 3.5 mmol/L (3.5-5.1)
--- NOTE | 2019-10-21 07:08 | NUR ---
Closing note Pt resting in right lateral position w. eyes closed. no s/s of pain or discomfort at this time. bed in low locked position, call light within reach.
[2019-10-21 07:15] LABS: BUN/Creatinine Ratio 3.6; Bilirubin, Total 0.8 mg/dL (0.2-1.0); Total Protein 6.4 g/dL (6.4-8.2)
[2019-10-21 09:00] VITALS: BP 148/86
[2019-10-21] MEDS: ENOXAPARIN SOD 40 MG/0.4 ML SYRINGE SC SCH (10:24)
[2019-10-21] MEDS: chlordiazePOXIDE HCL 25 MG CAP PO SCH ×2 (10:24→21:19)
--- NOTE | 2019-10-21 11:07 | NUR ---
Dr Sarah at bedside. New orders received.
--- NOTE | 2019-10-21 11:09 | NUR ---
MRSA swab sent
[2019-10-21] MEDS ORDERED: FOLI1TAB6 PO (11:10)
[2019-10-21] MEDS ORDERED: THIA100T10 PO (11:10)
[2019-10-21] MEDS ORDERED: HYDR-4833 PO (11:37)
[2019-10-21] MEDS: FOLIC ACID 1 MG, MULTIPLE VITAMIN 10 ML, MAGNESIUM SULF SDV 50% 8 MEQ, THIAMINE INJ 100... INJ SCH ×5 (12:00)
--- NOTE | 2019-10-21 12:36 | NUR ---
Patient had a clear liquid diet for lunch and did not tolerate it. Patient was nauseous and wanted to vomit. Called Dr Sarah and received new orders.
[2019-10-21] MEDS: ONDANSETRON HCL 4 MG/2 ML VIAL IV PRN ×2 (12:50→21:19)
[2019-10-21 13:00] VITALS: BP 135/69
--- NOTE | 2019-10-21 14:46 | NUR ---
Nutrition Assessment/consult Note please see attached link for complete assessment Est [employer] needs BW 62 [id number] kcals (30-33 kcal/kgBW),Est Protein needs: 62-74 gms/day (1.0-1.2 gm/kgBW). Will continue to monitor and reassess prn. Addendum: 10/21/19 at [address] Amended: Links added.
[2019-10-21 17:00] VITALS: BP 116/73
--- NOTE | 2019-10-21 18:54 | NUR ---
IV removal IV DC'd with clean sterile technique, catheter fully intact. Pressure dressing applied to site. Patient tolerated well.
--- NOTE | 2019-10-21 18:55 | NUR ---
IV insertion IV access obtained, via clean sterile technique by inserting 22 gauge catheter at left wrist after 2 attempt(s). IV secured properly. No trauma to site. Patient tolerated well. NOTE: []
[2019-10-21 20:00] VITALS: BP 136/91
--- NOTE | 2019-10-21 21:19 | NUR ---
Pain & Nausea Patient c/o pain 9/10 and nausea. Pain and nausea medication given.
--- NOTE | 2019-10-21 21:49 | NUR ---
Re Pain Patient resting with eyes closed, no sign of pain or distress. Will continue to monitor.
[2019-10-21 22:00] VITALS: BP 136/91
[2019-10-22] MEDS: HYDROmorphone HCL 2 MG/ML VL IV PRN ×5 (01:20→18:13)
--- NOTE | 2019-10-22 01:20 | NUR ---
Pain Patient c/o pain 9/10 to the abdomen, pain medication administered.
--- NOTE | 2019-10-22 01:50 | NUR ---
Re Pain Patient resting with eyes closed, no sign of pain or distress. Will continue to monitor.
[2019-10-22] MEDS: D5W/SOD CHL 0.45%/KCL 20MEQ 1,000 ML IV SCH ×3 (02:30→15:50)
--- NOTE | 2019-10-22 04:50 | NUR ---
Pain Patient c/o pain 7/10 to the abdomen, pain medication administered.
[2019-10-22 05:10] VITALS: BP 137/86
--- NOTE | 2019-10-22 05:20 | NUR ---
Re Pain Patient resting with eyes closed, no sign of pain or distress. Will continue to monitor.
[2019-10-22 05:49] LABS: Basophils # (auto) 0 10 ^3/uL (0-0.2); Basophils % (auto) 0.6 % (0.0-2.0); Eosinophils # (auto) 0.1 10 ^3/uL (0-0.8); Eosinophils % (auto) 3.9 % (0.0-7.0); Hematocrit 39.8 % (41.0-53.0); Hemoglobin 13.4 g/dL (13.5-17.5); Lymphocytes % (auto) 33.5 % (10.0-50.0); Mean Corpuscular Hgb Conc. 33.7 g/dL (32.0-36.0); Monocytes # (auto) 0.4 10 ^3/uL (0-1.3); Monocytes % (auto) 13.9 % (0.0-12.0); Neutrophils # (auto) 1.5 10 ^3/uL (1.6-8.6); Neutrophils % (auto) 48.1 % (37.0-80.0); Platelet Count (auto) 162 10^3/uL (140-450); Red Blood Cells 4.33 10^6/uL (4.5-5.90); Red Cell Distribution Width 13.6 % (11.8-14.3); White Blood Cell 3.1 10^3/uL (4.4-10.8)
[2019-10-22 06:34] LABS: Albumin 2.9 g/dL (3.4-5.0); Bilirubin, Total 0.8 mg/dL (0.2-1.0); Calcium 8.1 mg/dL (8.5-10.1); Potassium 3.6 mmol/L (3.5-5.1); Total Protein 6.3 g/dL (6.4-8.2)
[2019-10-22 09:00] VITALS: BP 134/78
[2019-10-22] MEDS: ENOXAPARIN SOD 40 MG/0.4 ML SYRINGE SC SCH (09:33)
[2019-10-22] MEDS: chlordiazePOXIDE HCL 25 MG CAP PO SCH (09:33)
[2019-10-22] MEDS: FOLIC ACID 1 MG, MULTIPLE VITAMIN 10 ML, MAGNESIUM SULF SDV 50% 8 MEQ, THIAMINE INJ 100... INJ SCH ×5 (11:49)
[2019-10-22] MEDS: ONDANSETRON HCL 4 MG/2 ML VIAL IV PRN ×3 (12:41→21:32)
--- NOTE | 2019-10-22 12:41 | NUR ---
Patient did not tolerate a clear liquid diet. Patient back NPO
[2019-10-22 13:00] VITALS: BP 126/94
[2019-10-22 16:50] VITALS: BP 136/75
[2019-10-22 22:00] VITALS: BP 116/73
[2019-10-23] MEDS: HYDROmorphone HCL 2 MG/ML VL IV PRN ×4 (00:10→14:50)
[2019-10-23] MEDS: D5W/SOD CHL 0.45%/KCL 20MEQ 1,000 ML IV SCH ×3 (04:53→11:50)
[2019-10-23 05:00] VITALS: BP 112/70
[2019-10-23 05:15] LABS: Basophils # (auto) 0 10 ^3/uL (0-0.2); Basophils % (auto) 1.5 % (0.0-2.0); Eosinophils # (auto) 0.1 10 ^3/uL (0-0.8); Eosinophils % (auto) 4.4 % (0.0-7.0); Hematocrit 41.8 % (41.0-53.0); Hemoglobin 14.2 g/dL (13.5-17.5); Lymphocytes # (auto) 0.8 10 ^3/uL (0.4-5.4); Lymphocytes % (auto) 30.6 % (10.0-50.0); Mean Corpuscular Hemoglobin 31.4 pg (28.0-32.0); Mean Corpuscular Volume 92.3 fL (80.0-100.0); Monocytes # (auto) 0.4 10 ^3/uL (0-1.3); Monocytes % (auto) 14.1 % (0.0-12.0); Neutrophils # (auto) 1.3 10 ^3/uL (1.6-8.6); Neutrophils % (auto) 49.4 % (37.0-80.0); Nucleated Red Blood Cells % 0.1 %; Platelet Count (auto) 231 10^3/uL (140-450); Red Blood Cells 4.53 10^6/uL (4.5-5.90); Red Cell Distribution Width 13.6 % (11.8-14.3); White Blood Cell 2.6 10^3/uL (4.4-10.8)
[2019-10-23] MEDS: ONDANSETRON HCL 4 MG/2 ML VIAL IV PRN (06:23)
[2019-10-23] MEDS ORDERED: chlordiazePOXIDE HCL 25 MG CAP PO SCH (07:00)
--- NOTE | 2019-10-23 07:30 | NUR ---
Opening Note Assumed patient care from NOC RNTiffanie. Patient currently laying supine with eyes closed, respirations even and unlabored, will continue to monitor.
[2019-10-23 08:32] VITALS: BP 116/67
[2019-10-23] MEDS: ENOXAPARIN SOD 40 MG/0.4 ML SYRINGE SC SCH (10:00)
[2019-10-23 10:26] VITALS: BP 116/67
--- NOTE | 2019-10-23 10:56 | NUR ---
MD Called Spoke with Dr. Woo; per MD, if patient tolerates diet, continue with discharge and administer pain medicine before discharge.
[2019-10-23] MEDS: FOLIC ACID 1 MG, MULTIPLE VITAMIN 10 ML, MAGNESIUM SULF SDV 50% 8 MEQ, THIAMINE INJ 100... INJ SCH ×5 (12:00)
[2019-10-23 12:30] VITALS: BP 126/72
--- NOTE | 2019-10-23 13:08 | NUR ---
Diet Patient tolerating liquids, denies nausea and vomiting at this time. Per MD request, will continue with discharge. Will continue to monitor.
--- NOTE | 2019-10-23 15:20 | NUR ---
Discharge Discharge instructions given as ordered. Encourage to follow up with PMD as instructed. All questions and concerns addressed. Patient verbalized understanding. Medication reconciliation form completed and copy given to patient. IV removed with catheter intact, pressure dressing applied. Patient taken to vehicle via wheelchair with all personal belongings, accompanied by staff and family member. No distress noted at time of departure.
== END 2019-10-23 15:20 | disposition home health service (06) | DRG 440 ==
LOC: ER 09:10 → OVERFLOW 09:11 → WEST WING 10-20 11:33
PROVIDERS: ADMIT Hospitalist; ATTEND Hospitalist
DX: K85.20 Alcohol induced acute pancreatitis without necrosis or infection (principal); K86.0 Alcohol-induced chronic pancreatitis; K70.30 Alcoholic cirrhosis of liver without ascites; E87.6 Hypokalemia; K76.0 Fatty (change of) liver, not elsewhere classified; Z87.11 Personal history of peptic ulcer disease; Z87.891 Personal history of nicotine dependence; Z87.19 Personal history of other diseases of the digestive system; Z88.5 Allergy status to narcotic agent
CPT/HCPCS: 36415; 80053; 80307; 81001; 82150; 83690; 83735; 84443; 84484; 85025; 87081; 93005; G0378; J2405

== ENCOUNTER 2021-08-21 01:34 | Inpatient (IN) | payer BC ==
[~2021-08-21] VITALS: Ht 175.3 cm; Wt 68.4 kg
[2021-08-21] VITALS (85 sets, daily range): BP systolic 81–165; BP diastolic 26–86
[~2021-08-21 01:34] MED LIST changes: -HYDR-531 PO; -LEVO500T21 PO; -MET500T PO
[2021-08-21 04:12] LABS: Eosinophils # (auto) 0 10 ^3/uL (0-0.8); Eosinophils % (auto) 0.4 % (0.0-7.0); Monocytes # (auto) 0.4 10 ^3/uL (0-1.3); Neutrophils # (auto) 3.2 10 ^3/uL (1.6-8.6); Nucleated Red Blood Cells % 0.2 %; Red Blood Cells 2.19 10^6/uL (4.5-5.90)
[2021-08-21 04:14] LABS: Basophils # (auto) 0.1 10 ^3/uL (0-0.2); Basophils % (auto) 1.4 % (0.0-2.0); Hematocrit 12.9 % (41.0-53.0); Lymphocytes # (auto) 0.6 10 ^3/uL (0.4-5.4); Lymphocytes % (auto) 12.9 % (10.0-50.0); Mean Corpuscular Hemoglobin 17.8 pg (28.0-32.0); Mean Corpuscular Hgb Conc. 30.1 g/dL (32.0-36.0); Mean Corpuscular Volume 59.1 fL (80.0-100.0); Neutrophils % (auto) 75.3 % (37.0-80.0); Red Cell Distribution Width 19.7 % (11.8-14.3); White Blood Cell 4.3 10^3/uL (4.4-10.8)
[2021-08-21] MEDS ORDERED: ONDANSETRON HCL 4 MG/2 ML VIAL ONE (04:18)
[2021-08-21] MEDS ORDERED: ONDANSETRON HCL 4 MG/2 ML VIAL IV ONE (04:30)
[2021-08-21 04:32] LABS: Albumin 3.2 g/dL (3.4-5.0); BUN/Creatinine Ratio 17.2; Calcium 8.2 mg/dL (8.5-10.1); Potassium 3.7 mmol/L (3.5-5.1)
[2021-08-21 04:35] LABS: Bilirubin, Total 0.6 mg/dL (0.2-1.0)
[2021-08-21 04:42] LABS: Hemoglobin 3.9 g/dL (13.5-17.5)
[2021-08-21] MEDS ORDERED: ETOMIDATE (2MG/ML) 20ML VIAL IV ONE ×2 (04:42→05:00)
[2021-08-21] MEDS ORDERED: ROCURONIUM 10MG/ML 10ML VIAL IV ONE ×2 (04:42→05:00)
[2021-08-21] MEDS ORDERED: PROPOFOL 200 ML IV ONE (04:44)
[2021-08-21] MEDS ORDERED: METOCLOPRAMIDE HCL 5MG/ml INJ 2ml VIAL IV ONE (04:45)
[2021-08-21] MEDS ORDERED: PANTOPRAZOLE 40mg/50ML NS AE 50 ML IV ONE (04:45)
[2021-08-21] MEDS ORDERED: OCTREOTIDE ACETATE 100 MCG in SODIUM CHL 0.9% 50 ML IV ONE (04:45)
[2021-08-21] MEDS ORDERED: PANTOPRAZOLE 40 MG/10 ML VIAL INJ IV ONE (04:45)
[2021-08-21] MEDS ORDERED: cefTRIAXone 1GM/50ML D5W 50 ML IV ONE (04:45)
[2021-08-21] MEDS: fentaNYL Drip 2500mCg/250mlNS 250 ML IV SCH ×2 (04:50→17:00)
[2021-08-21] MEDS: PROPOFOL 100 ML IV SCH ×2 (04:50→21:32)
[2021-08-21 05:09] LABS: Fibrinogen 227 mg/dL (177-375); Partial Thromboplastin Time < 20.0 sec (23.6-33.0)
[2021-08-21 05:13] LABS: Lactic Acid w/Reflex 3.8 mmol/L (0.4-2.0)
[2021-08-21] MEDS ORDERED: MORPHINE SULFATE INJECTION 2 MG/ML SYRG IV PRN (05:30)
[2021-08-21] MEDS ORDERED: NITROGLYCERIN 0.4 MG SL TAB SL PRN (05:30)
[2021-08-21] MEDS ORDERED: SOD CHL 0.45% 1,000 ML IV ONE (05:30)
[2021-08-21 05:39] LABS: Urine Bacteria NONE SEEN /hpf (None Seen); Urine Blood Negative /uL (Negative); Urine Specific Gravity 1.023 (1.001-1.035); Urine WBC <1 /hpf (0 - 3)
[2021-08-21] MEDS ORDERED: fentaNYL Drip 2500mCg/250mlNS 250 ML IV ONE (05:46)
[2021-08-21] MEDS ORDERED: MIDAZOLAM DRIP 50 mg/50mL 50 ML IV ONE (05:55)
[2021-08-21] MEDS: MIDAZOLAM DRIP 50 mg/50mL 50 ML IV SCH ×2 (06:29→17:30)
[2021-08-21] MEDS: OCTREOTIDE ACETATE 500 MCG in SODIUM CHL 0.9% 99 ML IV SCH ×3 (09:32→21:15)
[2021-08-21 10:27] LABS: Amphetamine Screen, Urine POSITIVE (NEGATIVE); Barbiturate Scree,Urine NEGATIVE (NEGATIVE); Benzodiazephine Screen, Urine POSITIVE (NEGATIVE); Cannabinoid Screen, Urine POSITIVE (NEGATIVE); Cocaine Screen, Urine NEGATIVE (NEGATIVE); Opiate Scree,Urine NEGATIVE (NEGATIVE); Phencyclidine Screen, Urine NEGATIVE (NEGATIVE)
[2021-08-21 10:38] LABS: Hematocrit 15.4 % (41.0-53.0)
[2021-08-21] MEDS ORDERED: NOREPINEPHRINE 8 MG/250ML KIT 250 ML IV ONE (11:30)
[2021-08-21] MEDS: NOREPINEPHRINE 8 MG/250ML KIT 250 ML IV SCH (11:30)
[2021-08-21] MEDS: PANTOPRAZOLE 40 MG/10 ML VIAL INJ IV SCH (21:15)
[2021-08-22] VITALS (108 sets, daily range): BP systolic 103–137; BP diastolic 19–48
[2021-08-22 04:28] LABS: Eosinophils # (auto) 0.2 10 ^3/uL (0-0.8)
[2021-08-22 04:30] LABS: Basophils # (auto) 0.1 10 ^3/uL (0-0.2); Basophils % (auto) 1.3 % (0.0-2.0); Eosinophils % (auto) 2.7 % (0.0-7.0); Hematocrit 27.5 % (41.0-53.0); Hemoglobin 9.5 g/dL (13.5-17.5); Lymphocytes # (auto) 1.1 10 ^3/uL (0.4-5.4); Mean Corpuscular Hemoglobin 26.1 pg (28.0-32.0); Mean Corpuscular Hgb Conc. 34.4 g/dL (32.0-36.0); Mean Corpuscular Volume 75.8 fL (80.0-100.0); Monocytes # (auto) 0.7 10 ^3/uL (0-1.3); Monocytes % (auto) 10.9 % (0.0-12.0); Neutrophils # (auto) 4.1 10 ^3/uL (1.6-8.6); Neutrophils % (auto) 67.1 % (37.0-80.0); Nucleated Red Blood Cells % 0.8 %; Red Blood Cells 3.63 10^6/uL (4.5-5.90); White Blood Cell 6.2 10^3/uL (4.4-10.8)
[2021-08-22] MEDS: fentaNYL Drip 2500mCg/250mlNS 250 ML IV SCH ×2 (04:42→15:48)
[2021-08-22] MEDS: MIDAZOLAM DRIP 50 mg/50mL 50 ML IV SCH ×6 (04:43→23:22)
[2021-08-22 04:47] LABS: Albumin 2.9 g/dL (3.4-5.0); BUN/Creatinine Ratio 18.7; Calcium 7.9 mg/dL (8.5-10.1); Potassium 3.9 mmol/L (3.5-5.1)
[2021-08-22 04:50] LABS: Bilirubin, Total 2.9 mg/dL (0.2-1.0); Total Protein 5.9 g/dL (6.4-8.2)
[2021-08-22] MEDS: OCTREOTIDE ACETATE 500 MCG in SODIUM CHL 0.9% 99 ML IV SCH ×2 (08:30→15:48)
[2021-08-22] MEDS: PANTOPRAZOLE 40 MG/10 ML VIAL INJ IV SCH ×2 (09:35→22:38)
[2021-08-22] MEDS: PROPOFOL 100 ML IV SCH (11:14)
[2021-08-22] MEDS: NOREPINEPHRINE 8 MG/250ML KIT 250 ML IV SCH (11:28)
[2021-08-22] MEDS: FOLIC ACID 1 MG, MULTIPLE VITAMIN 10 ML, MAGNESIUM SULF SDV 50% 8 MEQ, THIAMINE INJ 100... INJ SCH ×5 (12:32)
[2021-08-23] VITALS (104 sets, daily range): BP systolic 88–127; BP diastolic 34–59
[2021-08-23] MEDS: OCTREOTIDE ACETATE 500 MCG in SODIUM CHL 0.9% 99 ML IV SCH ×2 (02:20→12:35)
[2021-08-23] MEDS: MIDAZOLAM DRIP 50 mg/50mL 50 ML IV SCH ×2 (03:26→08:55)
[2021-08-23 04:17] LABS: Basophils # (auto) 0 10 ^3/uL (0-0.2); Basophils % (auto) 0.7 % (0.0-2.0); Eosinophils # (auto) 0.2 10 ^3/uL (0-0.8)
[2021-08-23 04:21] LABS: Eosinophils % (auto) 2.4 % (0.0-7.0); Hematocrit 28.3 % (41.0-53.0); Hemoglobin 9.4 g/dL (13.5-17.5); Lymphocytes # (auto) 0.9 10 ^3/uL (0.4-5.4); Mean Corpuscular Hemoglobin 25.6 pg (28.0-32.0); Mean Corpuscular Hgb Conc. 33.3 g/dL (32.0-36.0); Mean Corpuscular Volume 76.8 fL (80.0-100.0); Monocytes # (auto) 0.8 10 ^3/uL (0-1.3); Monocytes % (auto) 12.2 % (0.0-12.0); Neutrophils # (auto) 4.8 10 ^3/uL (1.6-8.6); Neutrophils % (auto) 71.7 % (37.0-80.0); Nucleated Red Blood Cells % 0.3 %; Red Blood Cells 3.69 10^6/uL (4.5-5.90); White Blood Cell 6.7 10^3/uL (4.4-10.8)
[2021-08-23] MEDS: fentaNYL Drip 2500mCg/250mlNS 250 ML IV SCH (04:29)
[2021-08-23 04:36] LABS: Albumin 2.8 g/dL (3.4-5.0); BUN/Creatinine Ratio 16.2; Calcium 7.5 mg/dL (8.5-10.1); Potassium 4.2 mmol/L (3.5-5.1)
[2021-08-23 04:39] LABS: Bilirubin, Total 1.4 mg/dL (0.2-1.0); Total Protein 6.3 g/dL (6.4-8.2)
[2021-08-23 04:47] LABS: Red Cell Distribution Width 29.4 % (11.8-14.3)
[2021-08-23] MEDS: PANTOPRAZOLE 40 MG/10 ML VIAL INJ IV SCH ×2 (09:58→23:40)
[2021-08-23] MEDS: NOREPINEPHRINE 8 MG/250ML KIT 250 ML IV SCH (11:30)
[2021-08-23] MEDS: FOLIC ACID 1 MG, MULTIPLE VITAMIN 10 ML, MAGNESIUM SULF SDV 50% 8 MEQ, THIAMINE INJ 100... INJ SCH ×5 (12:42)
[2021-08-23] MEDS ORDERED: ONDA-144 PO (18:06)
[2021-08-23] MEDS ORDERED: DOCU-94 PO (18:06)
[2021-08-24] VITALS (86 sets, daily range): BP systolic 91–122; BP diastolic 42–71
[2021-08-24] MEDS: OCTREOTIDE ACETATE 500 MCG in SODIUM CHL 0.9% 99 ML IV SCH ×2 (00:30→09:44)
[2021-08-24] MEDS: fentaNYL Drip 2500mCg/250mlNS 250 ML IV SCH (05:45)
[2021-08-24] MEDS: PROPOFOL 100 ML IV SCH (09:09)
[2021-08-24] MEDS: PANTOPRAZOLE 40 MG/10 ML VIAL INJ IV SCH ×2 (09:26→22:57)
[2021-08-24 10:33] LABS: Basophils # (auto) 0 10 ^3/uL (0-0.2); Basophils % (auto) 0.6 % (0.0-2.0); Eosinophils # (auto) 0.2 10 ^3/uL (0-0.8); Eosinophils % (auto) 2.6 % (0.0-7.0); Hematocrit 26.2 % (41.0-53.0); Hemoglobin 8.6 g/dL (13.5-17.5); Lymphocytes # (auto) 0.3 10 ^3/uL (0.4-5.4); Lymphocytes % (auto) 5.4 % (10.0-50.0); Mean Corpuscular Hemoglobin 25.6 pg (28.0-32.0); Mean Corpuscular Hgb Conc. 32.9 g/dL (32.0-36.0); Mean Corpuscular Volume 77.6 fL (80.0-100.0); Monocytes # (auto) 0.5 10 ^3/uL (0-1.3); Monocytes % (auto) 8.2 % (0.0-12.0); Neutrophils # (auto) 4.9 10 ^3/uL (1.6-8.6); Neutrophils % (auto) 83.2 % (37.0-80.0); Nucleated Red Blood Cells % 0.1 %; Red Blood Cells 3.37 10^6/uL (4.5-5.90); White Blood Cell 5.9 10^3/uL (4.4-10.8)
[2021-08-24 10:34] LABS: Red Cell Distribution Width 30.1 % (11.8-14.3)
[2021-08-24] MEDS: NOREPINEPHRINE 8 MG/250ML KIT 250 ML IV SCH (11:30)
[2021-08-24] MEDS: FOLIC ACID 1 MG, MULTIPLE VITAMIN 10 ML, MAGNESIUM SULF SDV 50% 8 MEQ, THIAMINE INJ 100... INJ SCH ×5 (12:14)
[2021-08-24] MEDS ORDERED: LACTULOSE 10g/15ml SOLN 473ML PR SCH (12:15)
[2021-08-24] MEDS: ONDANSETRON HCL 4 MG/2 ML VIAL IV PRN ×2 (15:06→22:22)
[2021-08-24] MEDS: D5W/SOD CHL 0.45% 1,000 ML IV SCH (16:21)
[2021-08-25] VITALS (45 sets, daily range): BP systolic 91–109; BP diastolic 40–59
[2021-08-25] MEDS: D5W/SOD CHL 0.45% 1,000 ML IV SCH ×3 (02:21→21:12)
[2021-08-25] MEDS: ONDANSETRON HCL 4 MG/2 ML VIAL IV PRN ×2 (04:15→16:01)
[2021-08-25 04:20] LABS: Basophils # (auto) 0 10 ^3/uL (0-0.2); Eosinophils # (auto) 0 10 ^3/uL (0-0.8); Hemoglobin 7.9 g/dL (13.5-17.5); Lymphocytes # (auto) 0.5 10 ^3/uL (0.4-5.4); Monocytes # (auto) 0.4 10 ^3/uL (0-1.3); Nucleated Red Blood Cells % 0.1 %
[2021-08-25 04:22] LABS: Basophils % (auto) 0.4 % (0.0-2.0); Eosinophils % (auto) 0.9 % (0.0-7.0); Hematocrit 23.6 % (41.0-53.0); Lymphocytes % (auto) 12.3 % (10.0-50.0); Mean Corpuscular Hemoglobin 25.9 pg (28.0-32.0); Mean Corpuscular Hgb Conc. 33.6 g/dL (32.0-36.0); Monocytes % (auto) 9.4 % (0.0-12.0); Neutrophils # (auto) 3.1 10 ^3/uL (1.6-8.6); Red Blood Cells 3.06 10^6/uL (4.5-5.90)
[2021-08-25 04:27] LABS: Red Cell Distribution Width 30.9 % (11.8-14.3)
[2021-08-25 04:43] LABS: Albumin 2.3 g/dL (3.4-5.0); BUN/Creatinine Ratio 9.1; Calcium 7.3 mg/dL (8.5-10.1); Potassium 3.6 mmol/L (3.5-5.1)
[2021-08-25 04:46] LABS: Total Protein 5.4 g/dL (6.4-8.2)
[2021-08-25] MEDS: PROPOFOL 100 ML IV SCH (05:00)
[2021-08-25] MEDS: fentaNYL Drip 2500mCg/250mlNS 250 ML IV SCH ×2 (05:45→08:18)
[2021-08-25] MEDS: MIDAZOLAM DRIP 50 mg/50mL 50 ML IV SCH (06:00)
[2021-08-25] MEDS ORDERED: ONDANSETRON HCL 4 MG/2 ML VIAL ONE (09:44)
[2021-08-25] MEDS: PANTOPRAZOLE 40 MG/10 ML VIAL INJ IV SCH ×2 (10:31→21:12)
[2021-08-25] MEDS: POTASSIUM CHL 20MEQ/100ML 100 ML IV SCH ×2 (10:39→12:01)
[2021-08-25] MEDS ORDERED: LORazepam 2MG/ML-1ML VIAL IV PRN ×2 (11:15→12:45)
[2021-08-25] MEDS: ceFAZolin 1GM/50ML 50 ML IV ONE ×2 (11:28→15:00)
[2021-08-25] MEDS ORDERED: LACTULOSE 10g/15ml SOLN 473ML PR SCH (12:00)
[2021-08-25] MEDS ORDERED: chlordiazePOXIDE HCL 25 MG CAP PO PRN (12:15)
[2021-08-25] MEDS ORDERED: LEVO500T31 PO (12:17)
[2021-08-25] MEDS ORDERED: LACT10SO70 PO (12:29)
[2021-08-25] MEDS ORDERED: ESOM40CA83 PO (12:32)
[2021-08-25] MEDS: FOLIC ACID 1 MG, MULTIPLE VITAMIN 10 ML, MAGNESIUM SULF SDV 50% 8 MEQ, THIAMINE INJ 100... INJ SCH ×5 (13:18)
[2021-08-25] MEDS: LORazepam 2MG/ML-1ML VIAL IV PRN ×3 (16:08→23:50)
[2021-08-25] MEDS: ceFAZolin 1GM/50ML 50 ML IV SCH (19:00)
[2021-08-25] MEDS: LACTULOSE 20Gm/30ML SOLN PO SCH (23:50)
[2021-08-26] MEDS: ceFAZolin 1GM/50ML 50 ML IV SCH ×3 (03:00→18:52)
[2021-08-26] MEDS: LORazepam 2MG/ML-1ML VIAL IV PRN (03:00)
[2021-08-26 05:34] VITALS: BP 107/55
[2021-08-26] MEDS: LACTULOSE 20Gm/30ML SOLN PO SCH ×3 (06:09→18:00)
[2021-08-26 06:32] LABS: Albumin 2.4 g/dL (3.4-5.0); BUN/Creatinine Ratio 6.5; Calcium 7.5 mg/dL (8.5-10.1); Potassium 3.2 mmol/L (3.5-5.1)
[2021-08-26 06:34] LABS: Bilirubin, Total 0.9 mg/dL (0.2-1.0); Total Protein 5.5 g/dL (6.4-8.2)
[2021-08-26 06:41] LABS: Basophils # (auto) 0 10 ^3/uL (0-0.2); Eosinophils # (auto) 0.1 10 ^3/uL (0-0.8); Monocytes # (auto) 0.3 10 ^3/uL (0-1.3); Neutrophils # (auto) 1.6 10 ^3/uL (1.6-8.6); White Blood Cell 2.6 10^3/uL (4.4-10.8)
[2021-08-26 06:43] LABS: Basophils % (auto) 0.4 % (0.0-2.0); Eosinophils % (auto) 4.5 % (0.0-7.0); Hematocrit 24.9 % (41.0-53.0); Hemoglobin 8.4 g/dL (13.5-17.5); Lymphocytes # (auto) 0.6 10 ^3/uL (0.4-5.4); Lymphocytes % (auto) 21.6 % (10.0-50.0); Mean Corpuscular Hemoglobin 26.5 pg (28.0-32.0); Mean Corpuscular Hgb Conc. 33.8 g/dL (32.0-36.0); Mean Corpuscular Volume 78.5 fL (80.0-100.0); Monocytes % (auto) 13.1 % (0.0-12.0); Neutrophils % (auto) 60.4 % (37.0-80.0); Nucleated Red Blood Cells % 0.3 %; Red Blood Cells 3.17 10^6/uL (4.5-5.90)
[2021-08-26 06:55] LABS: Red Cell Distribution Width 30.2 % (11.8-14.3)
[2021-08-26] MEDS ORDERED: POTASSIUM CHL 20 Meq TABLET PO ONE (07:15)
[2021-08-26] MEDS: D5W/SOD CHL 0.45% 1,000 ML IV SCH ×2 (08:11→17:45)
[2021-08-26 09:00] VITALS: BP 111/57
[2021-08-26 12:00] VITALS: BP 113/77
[2021-08-26] MEDS: FOLIC ACID 1 MG, MULTIPLE VITAMIN 10 ML, MAGNESIUM SULF SDV 50% 8 MEQ, THIAMINE INJ 100... INJ SCH ×5 (12:00)
[2021-08-26] MEDS: PANTOPRAZOLE 40 MG/10 ML VIAL INJ IV SCH (12:16)
[2021-08-26] MEDS: ONDANSETRON HCL 4 MG/2 ML VIAL IV PRN (13:40)
[2021-08-26] MEDS ORDERED: CHL25C GT (15:15)
[2021-08-26 16:00] VITALS: BP 105/37
[2021-08-26] MEDS ORDERED: IBUPROFEN 600 MG TAB PO ONE (17:15)
[2021-08-26 18:49] VITALS: BP 113/77
== END 2021-08-26 20:34 | disposition home health service (06) | DRG 432 ==
LOC: ER 01:34 → EDBD 01:34 → ICU WEST 05:16 → EEVIPCON 05:16 → ICU WEST 09:55 → TELE-WESTW 08-25 16:31
PROVIDERS: ADMIT Internal Medicine; ATTEND Internal Medicine
PROC: 0BH17EZ Insertion of Endotracheal Airway into Trachea, Via Natural or Artificial Opening (ICD-10-PCS; 2021-08-21)
PROC: 30233N1 Transfusion of Nonautologous Red Blood Cells into Peripheral Vein, Percutaneous Approach (ICD-10-PCS; 2021-08-21)
PROC: 06L38CZ Occlusion of Esophageal Vein with Extraluminal Device, Via Natural or Artificial Opening Endoscopic (ICD-10-PCS; 2021-08-21)
PROC: 5A1955Z Respiratory Ventilation, Greater than 96 Consecutive Hours (ICD-10-PCS; principal; 2021-08-21 11:30)
DX: K70.30 Alcoholic cirrhosis of liver without ascites (principal); I85.11 Secondary esophageal varices with bleeding; D62 Acute posthemorrhagic anemia; E44.1 Mild protein-calorie malnutrition; F15.10 Other stimulant abuse, uncomplicated; K70.10 Alcoholic hepatitis without ascites; F17.210 Nicotine dependence, cigarettes, uncomplicated; K76.0 Fatty (change of) liver, not elsewhere classified; Z20.822 Contact with and (suspected) exposure to COVID-19; Z87.11 Personal history of peptic ulcer disease; Z87.442 Personal history of urinary calculi; Z88.5 Allergy status to narcotic agent
CPT/HCPCS: 36415; 36600; 43255; 71045; 76705; 80053; 80307; 81001; 82140; 82805; 83605; 83690; 83735; 84484; 85014; 85018; 85025; 85384; 85610; 85730; 86850; 86900; 86901; 86920; 87070; 87077; 87081; 87186; 87205; 93005; 94002; 94003; 96365; 96367; 96375; 96376; A4565; C9113; G0378; J0690; J0696; J2250; J2405; J2704; J3480; J7060

== ENCOUNTER 2022-01-02 21:32 | Emergency (ER) | payer BC ==
[~2022-01-02 21:32] MED LIST changes: +CHL25C GT; +DOCU-94 PO; +ESOM40CA83 PO; +LACT10SO70 PO; +LEVO500T31 PO; +ONDA-144 PO
== END 2022-01-03 01:05 | disposition left against medical advice (07) ==
LOC: ER 21:32
DX: R11.2 Nausea with vomiting, unspecified (principal); Z53.21 Procedure and treatment not carried out due to patient leaving prior to being seen by health care provider

== ENCOUNTER 2022-05-30 23:50 | Inpatient (IN) | payer BC ==
[~2022-05-30] VITALS: Ht 175.3 cm; Wt 65.2 kg
[2022-05-31] VITALS (75 sets, daily range): BP systolic 89–156; BP diastolic 21–85
[2022-05-31] MEDS ORDERED: cefTRIAXone 1GM/50ML D5W 50 ML IV ONE (00:15)
[2022-05-31] MEDS ORDERED: OCTREOTIDE ACETATE 100 MCG in SODIUM CHL 0.9% 50 ML IV ONE (00:15)
[2022-05-31] MEDS ORDERED: PANTOPRAZOLE 80 MG in SODIUM CHL 0.9% 100 ML IV ONE (00:15)
[2022-05-31] MEDS ORDERED: PANTOPRAZOLE 40mg/50ML NS AE 50 ML IV ONE (00:15)
[2022-05-31] MEDS ORDERED: SODIUM CHLORIDE 0.9% 1,000 ML IV ONE (00:15)
[2022-05-31] MEDS ORDERED: IOHEXOL 350 MG/ML 100ML IJ ONE (00:25)
[2022-05-31] MEDS ORDERED: PANTOPRAZOLE 40 MG/10 ML VIAL INJ IV ONE (00:37)
[2022-05-31] MEDS ORDERED: OCTREOTIDE ACETATE 500 MCG/ML VL ONE (00:37)
[2022-05-31] MEDS ORDERED: OCTREOTIDE ACETATE 100 MCG/ML VL ONE (00:37)
[2022-05-31 00:39] LABS: Basophils # (auto) 0 10 ^3/uL (0-0.2); Neutrophils # (auto) 3.5 10 ^3/uL (1.6-8.6); Nucleated Red Blood Cells % 1.1 %; White Blood Cell 4.8 10^3/uL (4.4-10.8)
[2022-05-31 00:47] LABS: Basophils % (auto) 0.7 % (0.0-2.0); Eosinophils # (auto) 0 10 ^3/uL (0-0.8); Eosinophils % (auto) 0.6 % (0.0-7.0); Hematocrit 11.7 % (41.0-53.0); Lymphocytes # (auto) 0.6 10 ^3/uL (0.4-5.4); Lymphocytes % (auto) 12.9 % (10.0-50.0); Mean Corpuscular Hemoglobin 15.5 pg (28.0-32.0); Mean Corpuscular Hgb Conc. 26.8 g/dL (32.0-36.0); Monocytes # (auto) 0.6 10 ^3/uL (0-1.3); Monocytes % (auto) 12.4 % (0.0-12.0); Neutrophils % (auto) 73.4 % (37.0-80.0); Red Blood Cells 2.01 10^6/uL (4.5-5.90)
[2022-05-31 00:48] LABS: Hemoglobin 3.1 g/dL (13.5-17.5); Red Cell Distribution Width 23.3 % (11.8-14.3)
[2022-05-31 00:49] LABS: Albumin 2.8 g/dL (3.4-5.0); BUN/Creatinine Ratio 20.8; Calcium 7.7 mg/dL (8.5-10.1)
[2022-05-31 00:52] LABS: Bilirubin, Total 0.6 mg/dL (0.2-1.0); Lactic Acid w/Reflex 3.6 mmol/L (0.4-2.0); Total Protein 5.7 g/dL (6.4-8.2)
[2022-05-31] MEDS ORDERED: ROCURONIUM 10MG/ML 10ML VIAL IV ONE ×4 (01:00→05:30)
[2022-05-31] MEDS ORDERED: ETOMIDATE (2MG/ML) 20ML VIAL IV ONE ×2 (01:00→01:30)
[2022-05-31] MEDS ORDERED: MIDAZOLAM DRIP 50 mg/50mL 50 ML IV ONE (01:14)
[2022-05-31] MEDS ORDERED: MIDAZOLAM HCL 5 MG/ML-1ML VIAL IV ONE (01:15)
[2022-05-31] MEDS: MIDAZOLAM DRIP 50 mg/50mL 50 ML IV SCH ×5 (01:30→23:35)
[2022-05-31 02:05] LABS: INR 1.1 (0.9-1.15)
[2022-05-31] MEDS ORDERED: NITROGLYCERIN 0.4 MG SL TAB SL PRN ×2 (03:00→11:45)
[2022-05-31] MEDS ORDERED: ONDANSETRON HCL 4 MG/2 ML VIAL IV PRN (03:00)
[2022-05-31] MEDS: SODIUM CHLORIDE 0.9% 1,000 ML IV SCH ×7 (03:45→23:14)
[2022-05-31 03:53] LABS: Basophils # (auto) 0 10 ^3/uL (0-0.2); Eosinophils # (auto) 0 10 ^3/uL (0-0.8); Eosinophils % (auto) 0.1 % (0.0-7.0); Lymphocytes # (auto) 0.3 10 ^3/uL (0.4-5.4); Lymphocytes % (auto) 5.4 % (10.0-50.0); Monocytes # (auto) 0.5 10 ^3/uL (0-1.3); Nucleated Red Blood Cells % 0.4 %
[2022-05-31 03:55] LABS: Basophils % (auto) 0.6 % (0.0-2.0); Hematocrit 23.7 % (41.0-53.0); Hemoglobin 7.3 g/dL (13.5-17.5); Mean Corpuscular Hemoglobin 22.5 pg (28.0-32.0); Mean Corpuscular Hgb Conc. 30.9 g/dL (32.0-36.0); Mean Corpuscular Volume 72.7 fL (80.0-100.0); Monocytes % (auto) 8.8 % (0.0-12.0); Neutrophils # (auto) 4.9 10 ^3/uL (1.6-8.6); Neutrophils % (auto) 85.1 % (37.0-80.0); Red Blood Cells 3.27 10^6/uL (4.5-5.90); White Blood Cell 5.7 10^3/uL (4.4-10.8)
[2022-05-31] MEDS: OCTREOTIDE ACETATE 500 MCG in SODIUM CHL 0.9% 99 ML IV SCH ×3 (03:57→18:32)
[2022-05-31 03:58] LABS: Red Cell Distribution Width 32.8 % (11.8-14.3)
[2022-05-31 04:10] LABS: Albumin 2.9 g/dL (3.4-5.0); BUN/Creatinine Ratio 23.5; Calcium 6.8 mg/dL (8.5-10.1); Potassium 4.8 mmol/L (3.5-5.1)
[2022-05-31 04:13] LABS: Bilirubin, Total 0.8 mg/dL (0.2-1.0); Total Protein 5.8 g/dL (6.4-8.2)
[2022-05-31] MEDS: PROPOFOL 100 ML IV SCH ×2 (04:35→11:10)
[2022-05-31] MEDS: NOREPINEPHRINE 8 MG/250ML KIT 250 ML IV SCH ×2 (05:42→16:49)
[2022-05-31 06:07] LABS: Urine Bacteria FEW /hpf (None Seen); Urine Blood Negative /uL (Negative); Urine Mucus FEW (None Seen); Urine Specific Gravity 1.037 (1.001-1.035); Urine WBC 2 /hpf (0 - 3)
[2022-05-31] MEDS: PIPERACILLIN-TAZOB 3.375GM 100 ML IV SCH ×4 (06:26→23:35)
[2022-05-31 09:22] LABS: Basophils # (auto) 0.1 10 ^3/uL (0-0.2); Eosinophils # (auto) 0 10 ^3/uL (0-0.8); Hemoglobin 7.7 g/dL (13.5-17.5); Mean Corpuscular Hgb Conc. 30.9 g/dL (32.0-36.0); Neutrophils # (auto) 10.7 10 ^3/uL (1.6-8.6); Red Blood Cells 3.42 10^6/uL (4.5-5.90)
[2022-05-31 09:24] LABS: Basophils % (auto) 0.4 % (0.0-2.0); Eosinophils % (auto) 0.1 % (0.0-7.0); Hematocrit 24.9 % (41.0-53.0); Lymphocytes # (auto) 0.6 10 ^3/uL (0.4-5.4); Lymphocytes % (auto) 5.1 % (10.0-50.0); Mean Corpuscular Hemoglobin 22.6 pg (28.0-32.0); Monocytes # (auto) 1.3 10 ^3/uL (0-1.3); Monocytes % (auto) 10.1 % (0.0-12.0); Neutrophils % (auto) 84.3 % (37.0-80.0); Nucleated Red Blood Cells % 0.2 %; White Blood Cell 12.7 10^3/uL (4.4-10.8)
[2022-05-31 09:28] LABS: Red Cell Distribution Width 31.2 % (11.8-14.3)
[2022-05-31] MEDS ORDERED: SODIUM CHLORIDE LOCK 10 ML ONE (10:26)
[2022-05-31] MEDS ORDERED: EPINEPHrine HCL 1 MG/10 ML SYRG ONE (10:27)
[2022-05-31] MEDS ORDERED: fentaNYL CITRATE 100 MCG/2 ML VL ONE (10:27)
[2022-05-31] MEDS ORDERED: diphenhdrAMINE HCL 50 MG/1 ML VL ONE (10:27)
[2022-05-31 11:14] LABS: Albumin 2.7 g/dL (3.4-5.0); BUN/Creatinine Ratio 15.1; Calcium 7.5 mg/dL (8.5-10.1); Potassium 4.1 mmol/L (3.5-5.1)
[2022-05-31 11:17] LABS: Bilirubin, Total 1.6 mg/dL (0.2-1.0); Total Protein 5.8 g/dL (6.4-8.2)
[2022-05-31] MEDS ORDERED: MORPHINE SULFATE INJ 2 MG/ml SYRG IV PRN (11:45)
[2022-05-31] MEDS: FOLIC ACID 1 MG, MULTIPLE VITAMIN 10 ML, MAGNESIUM SULF SDV 50% 8 MEQ, THIAMINE INJ 100... INJ SCH ×5 (12:00)
[2022-05-31] MEDS: MIDAZOLAM HCL 2MG/2ML 2ml VIAL (1mg/ml) ONE ×2 (12:51→13:01)
[2022-05-31 15:30] LABS: Basophils # (auto) 0 10 ^3/uL (0-0.2); Basophils % (auto) 0.4 % (0.0-2.0); Eosinophils # (auto) 0.1 10 ^3/uL (0-0.8); Hemoglobin 7.6 g/dL (13.5-17.5); Lymphocytes # (auto) 0.7 10 ^3/uL (0.4-5.4); Mean Corpuscular Volume 73.5 fL (80.0-100.0); Monocytes # (auto) 1.1 10 ^3/uL (0-1.3); White Blood Cell 11.4 10^3/uL (4.4-10.8)
[2022-05-31 15:32] LABS: Hematocrit 24.5 % (41.0-53.0); Lymphocytes % (auto) 5.8 % (10.0-50.0); Mean Corpuscular Hemoglobin 22.9 pg (28.0-32.0); Mean Corpuscular Hgb Conc. 31.2 g/dL (32.0-36.0); Neutrophils # (auto) 9.4 10 ^3/uL (1.6-8.6); Neutrophils % (auto) 82.8 % (37.0-80.0); Nucleated Red Blood Cells % 0.5 %; Red Blood Cells 3.33 10^6/uL (4.5-5.90)
[2022-05-31 15:33] LABS: Red Cell Distribution Width 31.1 % (11.8-14.3)
[2022-05-31] MEDS ORDERED: PANTOPRAZOLE 40mg/50ML NS AE 50 ML IV SCH (18:15)
[2022-05-31] MEDS: PANTOPRAZOLE 40 MG/10 ML VIAL INJ IV SCH ×2 (20:00→22:00)
[2022-05-31 22:59] LABS: Basophils # (auto) 0 10 ^3/uL (0-0.2); Eosinophils # (auto) 0.1 10 ^3/uL (0-0.8); Hematocrit 23.7 % (41.0-53.0); Lymphocytes # (auto) 0.6 10 ^3/uL (0.4-5.4); Red Blood Cells 3.12 10^6/uL (4.5-5.90)
[2022-05-31 23:01] LABS: Basophils % (auto) 0.4 % (0.0-2.0); Eosinophils % (auto) 1.7 % (0.0-7.0); Hemoglobin 7.4 g/dL (13.5-17.5); Mean Corpuscular Hemoglobin 23.6 pg (28.0-32.0); Monocytes # (auto) 0.9 10 ^3/uL (0-1.3); Monocytes % (auto) 10.7 % (0.0-12.0); Neutrophils # (auto) 6.8 10 ^3/uL (1.6-8.6); Neutrophils % (auto) 80.2 % (37.0-80.0); Nucleated Red Blood Cells % 0.4 %; White Blood Cell 8.5 10^3/uL (4.4-10.8)
[2022-05-31 23:03] LABS: Red Cell Distribution Width 30.5 % (11.8-14.3)
[2022-06-01] VITALS (79 sets, daily range): BP systolic 93–127; BP diastolic 33–60
[2022-06-01] MEDS: PROPOFOL 100 ML IV SCH ×2 (00:23→16:44)
[2022-06-01 03:38] LABS: Basophils # (auto) 0 10 ^3/uL (0-0.2); Basophils % (auto) 0.7 % (0.0-2.0); Eosinophils # (auto) 0.2 10 ^3/uL (0-0.8); Eosinophils % (auto) 2.6 % (0.0-7.0); Hematocrit 24.9 % (41.0-53.0); Hemoglobin 7.4 g/dL (13.5-17.5); Lymphocytes # (auto) 0.6 10 ^3/uL (0.4-5.4); Mean Corpuscular Hemoglobin 22.7 pg (28.0-32.0); Mean Corpuscular Hgb Conc. 29.7 g/dL (32.0-36.0); Mean Corpuscular Volume 76.2 fL (80.0-100.0); Monocytes # (auto) 0.6 10 ^3/uL (0-1.3); Monocytes % (auto) 9.1 % (0.0-12.0); Neutrophils # (auto) 5.5 10 ^3/uL (1.6-8.6); Neutrophils % (auto) 78.6 % (37.0-80.0); Nucleated Red Blood Cells % 0.4 %; Red Blood Cells 3.26 10^6/uL (4.5-5.90)
[2022-06-01 03:40] LABS: Red Cell Distribution Width 30.4 % (11.8-14.3)
[2022-06-01] MEDS: SODIUM CHLORIDE 0.9% 1,000 ML IV SCH ×6 (03:45→23:14)
[2022-06-01 03:56] LABS: Albumin 2.4 g/dL (3.4-5.0); Anion Gap 6 (5-15); BUN/Creatinine Ratio 15.7; Blood Urea Nitrogen 8 mg/dL (7-18); Calcium 7.4 mg/dL (8.5-10.1); Carbon Dioxide 24 mmol/L (21-32); Chloride 116 mmol/L (98-107); GFR African American 257 mL/min; GFR Non-African American 212 mL/min; Glucose 110 mg/dL (74-106); Potassium 3.8 mmol/L (3.5-5.1); Sodium 146 mmol/L (136-145)
[2022-06-01 03:59] LABS: Alanine Aminotransferase 45 U/L (16-61); Alkaline Phosphatase 102 U/L (45-117); Aspartate Aminotransferase 28 U/L (15-37); Bilirubin, Total 0.9 mg/dL (0.2-1.0); Total Protein 5.6 g/dL (6.4-8.2)
[2022-06-01] MEDS: PIPERACILLIN-TAZOB 3.375GM 100 ML IV SCH ×4 (05:26→23:20)
[2022-06-01] MEDS: OCTREOTIDE ACETATE 500 MCG in SODIUM CHL 0.9% 99 ML IV SCH ×2 (06:09→16:54)
[2022-06-01] MEDS: PANTOPRAZOLE 40 MG/10 ML VIAL INJ IV SCH ×2 (09:11→22:23)
[2022-06-01] MEDS: FOLIC ACID 1 MG, MULTIPLE VITAMIN 10 ML, MAGNESIUM SULF SDV 50% 8 MEQ, THIAMINE INJ 100... INJ SCH ×5 (14:13)
[2022-06-01] MEDS: MIDAZOLAM DRIP 50 mg/50mL 50 ML IV SCH (16:43)
[2022-06-01] MEDS ORDERED: ESCI-28 PO (17:23)
[2022-06-01] MEDS ORDERED: HYDR-3682 PO (17:23)
[2022-06-02] VITALS (33 sets, daily range): BP systolic 104–155; BP diastolic 44–96
[2022-06-02] MEDS: SODIUM CHLORIDE 0.9% 1,000 ML IV SCH ×7 (01:40→22:15)
[2022-06-02] MEDS: OCTREOTIDE ACETATE 500 MCG in SODIUM CHL 0.9% 99 ML IV SCH ×3 (02:15→22:16)
[2022-06-02 04:18] LABS: Basophils # (auto) 0 10 ^3/uL (0-0.2); Eosinophils # (auto) 0.1 10 ^3/uL (0-0.8); Hematocrit 23.3 % (41.0-53.0); Hemoglobin 7.3 g/dL (13.5-17.5); Monocytes # (auto) 0.4 10 ^3/uL (0-1.3); White Blood Cell 4.4 10^3/uL (4.4-10.8)
[2022-06-02 04:20] LABS: Albumin 2.6 g/dL (3.4-5.0); Basophils % (auto) 1.1 % (0.0-2.0); Calcium 7.2 mg/dL (8.5-10.1); Lymphocytes # (auto) 0.5 10 ^3/uL (0.4-5.4); Lymphocytes % (auto) 11.2 % (10.0-50.0); Mean Corpuscular Hgb Conc. 31.3 g/dL (32.0-36.0); Mean Corpuscular Volume 73.5 fL (80.0-100.0); Monocytes % (auto) 9.7 % (0.0-12.0); Neutrophils # (auto) 3.3 10 ^3/uL (1.6-8.6); Nucleated Red Blood Cells % 0.2 %; Potassium 3.7 mmol/L (3.5-5.1); Red Blood Cells 3.18 10^6/uL (4.5-5.90)
[2022-06-02 04:24] LABS: BUN/Creatinine Ratio 16.1; Total Protein 5.6 g/dL (6.4-8.2)
[2022-06-02 04:26] LABS: Red Cell Distribution Width 31.7 % (11.8-14.3)
[2022-06-02] MEDS: NOREPINEPHRINE 8 MG/250ML KIT 250 ML IV SCH (05:30)
[2022-06-02] MEDS: PIPERACILLIN-TAZOB 3.375GM 100 ML IV SCH ×3 (06:00→18:34)
[2022-06-02] MEDS: PANTOPRAZOLE 40 MG/10 ML VIAL INJ IV SCH ×2 (12:02→22:15)
[2022-06-02] MEDS: LACTULOSE 20Gm/30ML SOLN PO SCH ×2 (12:33→18:34)
[2022-06-02] MEDS: FOLIC ACID 1 MG, MULTIPLE VITAMIN 10 ML, MAGNESIUM SULF SDV 50% 8 MEQ, THIAMINE INJ 100... INJ SCH ×5 (13:28)
[2022-06-02] MEDS ORDERED: SODIUM FERR GLUC 62.5MG/5ML 125 MG in SODIUM CHL 0.9% 100 ML IV ONE (15:45)
[2022-06-02] MEDS ORDERED: KETOROLAC TROMETH 30 MG/ML 1ML VIAL IV PRN (18:00)
[2022-06-02] MEDS ORDERED: ALPRAZolam 0.25 MG TAB PO ONE (19:30)
[2022-06-03] MEDS: PIPERACILLIN-TAZOB 3.375GM 100 ML IV SCH ×3 (00:42→12:00)
[2022-06-03] MEDS: MIDAZOLAM DRIP 50 mg/50mL 50 ML IV SCH (01:15)
[2022-06-03] MEDS ORDERED: ALPRAZolam 0.5 MG TAB PO PRN ×2 (01:45→02:00)
[2022-06-03] MEDS: SODIUM CHLORIDE 0.9% 1,000 ML IV SCH ×4 (03:45→11:45)
[2022-06-03] MEDS: PROPOFOL 100 ML IV SCH (04:00)
[2022-06-03 05:00] VITALS: BP 113/48
[2022-06-03] MEDS: NOREPINEPHRINE 8 MG/250ML KIT 250 ML IV SCH (05:30)
[2022-06-03] MEDS: LACTULOSE 20Gm/30ML SOLN PO SCH ×3 (06:06→12:00)
[2022-06-03 06:33] LABS: Basophils # (auto) 0 10 ^3/uL (0-0.2); Basophils % (auto) 0.7 % (0.0-2.0); Eosinophils # (auto) 0.1 10 ^3/uL (0-0.8); Eosinophils % (auto) 3.8 % (0.0-7.0); Hematocrit 23.8 % (41.0-53.0); Hemoglobin 7.4 g/dL (13.5-17.5); Lymphocytes # (auto) 0.5 10 ^3/uL (0.4-5.4); Mean Corpuscular Hemoglobin 22.9 pg (28.0-32.0); Mean Corpuscular Volume 73.9 fL (80.0-100.0); Monocytes # (auto) 0.3 10 ^3/uL (0-1.3); Monocytes % (auto) 8.4 % (0.0-12.0); Neutrophils # (auto) 2.6 10 ^3/uL (1.6-8.6); Neutrophils % (auto) 72.1 % (37.0-80.0); Nucleated Red Blood Cells % 0.3 %; Red Blood Cells 3.22 10^6/uL (4.5-5.90); White Blood Cell 3.7 10^3/uL (4.4-10.8)
[2022-06-03 06:34] LABS: Red Cell Distribution Width 31.8 % (11.8-14.3)
[2022-06-03 06:49] LABS: Potassium 3.6 mmol/L (3.5-5.1)
[2022-06-03 06:56] LABS: Albumin 2.7 g/dL (3.4-5.0); BUN/Creatinine Ratio 12.8; Bilirubin, Total 0.7 mg/dL (0.2-1.0); Calcium 7.3 mg/dL (8.5-10.1); Total Protein 5.7 g/dL (6.4-8.2)
[2022-06-03 09:00] VITALS: BP 123/46
[2022-06-03] MEDS: OCTREOTIDE ACETATE 500 MCG in SODIUM CHL 0.9% 99 ML IV SCH (09:19)
[2022-06-03] MEDS: PANTOPRAZOLE 40 MG/10 ML VIAL INJ IV SCH (10:26)
[2022-06-03 10:57] VITALS: BP 123/46
[2022-06-03] MEDS: FOLIC ACID 1 MG, MULTIPLE VITAMIN 10 ML, MAGNESIUM SULF SDV 50% 8 MEQ, THIAMINE INJ 100... INJ SCH ×5 (12:00)
[2022-06-03] MEDS ORDERED: SODIUM FERR GLUC 62.5MG/5ML 125 MG in SODIUM CHL 0.9% 100 ML IV ONE (12:00)
[2022-06-03 12:25] VITALS: BP 125/67
== END 2022-06-03 13:15 | disposition home health service (06) | DRG 432 ==
LOC: ER 23:50 → TELE 05-31 03:24 → ICU WEST 05-31 09:25 → TELE-WESTW 06-02 22:48
PROVIDERS: ADMIT Hospitalist; ATTEND Hospitalist
PROC: 5A1945Z Respiratory Ventilation, 24-96 Consecutive Hours (ICD-10-PCS; 2022-05-31)
PROC: 0DB68ZX Excision of Stomach, Via Natural or Artificial Opening Endoscopic, Diagnostic (ICD-10-PCS; 2022-05-31)
PROC: 06L38CZ Occlusion of Esophageal Vein with Extraluminal Device, Via Natural or Artificial Opening Endoscopic (ICD-10-PCS; 2022-05-31)
PROC: 0BH17EZ Insertion of Endotracheal Airway into Trachea, Via Natural or Artificial Opening (ICD-10-PCS; 2022-05-31)
PROC: 06HY33Z Insertion of Infusion Device into Lower Vein, Percutaneous Approach (ICD-10-PCS; 2022-05-31)
PROC: 30233K1 Transfusion of Nonautologous Frozen Plasma into Peripheral Vein, Percutaneous Approach (ICD-10-PCS; 2022-05-31)
PROC: 30233N1 Transfusion of Nonautologous Red Blood Cells into Peripheral Vein, Percutaneous Approach (ICD-10-PCS; 2022-05-31)
PROC: 0DB98ZX Excision of Duodenum, Via Natural or Artificial Opening Endoscopic, Diagnostic (ICD-10-PCS; principal; 2022-05-31 12:15)
DX: K74.60 Unspecified cirrhosis of liver (principal); I85.11 Secondary esophageal varices with bleeding; J96.00 Acute respiratory failure, unspecified whether with hypoxia or hypercapnia; K29.71 Gastritis, unspecified, with bleeding; R57.8 Other shock; D62 Acute posthemorrhagic anemia; K86.0 Alcohol-induced chronic pancreatitis; K76.6 Portal hypertension; I10 Essential (primary) hypertension; Z20.822 Contact with and (suspected) exposure to COVID-19; F17.210 Nicotine dependence, cigarettes, uncomplicated; D69.6 Thrombocytopenia, unspecified; K44.9 Diaphragmatic hernia without obstruction or gangrene; F15.10 Other stimulant abuse, uncomplicated; K31.9 Disease of stomach and duodenum, unspecified; Z88.8 Allergy status to other drugs, medicaments and biological substances; Z87.11 Personal history of peptic ulcer disease; Z82.5 Family history of asthma and other chronic lower respiratory diseases
CPT/HCPCS: 31500; 36415; 36556; 36600; 43239; 43244; 71045; 71260; 74177; 80053; 80320; 81001; 82140; 82805; 83605; 83690; 83880; 84484; 85025; 85610; 86850; 86900; 86901; 86920; 87070; 87077; 87081; 87186; 87205; 87426; 92610; 93971; 94002; 94003; 96361; 96365; 99291; C9113; G0378; J0696; J1885; J2250; J2405; J2543; J2704

== ENCOUNTER 2022-07-20 23:48 | Inpatient (IN) | payer BC ==
[~2022-07-20] VITALS: Ht 175.3 cm; Wt 60.0 kg
[~2022-07-20 23:48] MED LIST changes: +ESCI-28 PO; +HYDR-3682 PO
[2022-07-21] MEDS ORDERED: ONDANSETRON HCL 4 MG/2 ML VIAL IV ONE (00:45)
[2022-07-21 00:46] LABS: Basophils # (auto) 0 10 ^3/uL (0-0.2); Eosinophils # (auto) 0.1 10 ^3/uL (0-0.8); Hematocrit 27.1 % (41.0-53.0); Hemoglobin 8.7 g/dL (13.5-17.5); Lymphocytes # (auto) 0.9 10 ^3/uL (0.4-5.4); Monocytes # (auto) 0.5 10 ^3/uL (0-1.3)
[2022-07-21 00:48] LABS: Basophils % (auto) 0.6 % (0.0-2.0); Eosinophils % (auto) 1.1 % (0.0-7.0); Lymphocytes % (auto) 13.4 % (10.0-50.0); Mean Corpuscular Hemoglobin 24.6 pg (28.0-32.0); Mean Corpuscular Hgb Conc. 31.9 g/dL (32.0-36.0); Monocytes % (auto) 8.3 % (0.0-12.0); Neutrophils # (auto) 4.9 10 ^3/uL (1.6-8.6); Neutrophils % (auto) 76.6 % (37.0-80.0); Nucleated Red Blood Cells % 0.1 %; Red Blood Cells 3.52 10^6/uL (4.5-5.90); White Blood Cell 6.3 10^3/uL (4.4-10.8)
[2022-07-21 00:50] LABS: Red Cell Distribution Width 22.5 % (11.8-14.3)
[2022-07-21 00:56] LABS: Albumin 3.3 g/dL (3.4-5.0); BUN/Creatinine Ratio 37.3; Calcium 8.7 mg/dL (8.5-10.1); Magnesium 2.1 mg/dL (1.6-2.6)
[2022-07-21] MEDS ORDERED: IOHEXOL 350 MG/ML 100ML IJ ONE (00:57)
[2022-07-21 00:59] LABS: Bilirubin, Total 0.5 mg/dL (0.2-1.0); Total Protein 7.3 g/dL (6.4-8.2)
[2022-07-21 01:01] LABS: INR 1.15 (0.9-1.15); Partial Thromboplastin Time < 20.0 sec (24.6-33.4)
[2022-07-21] MEDS ORDERED: OCTREOTIDE ACETATE 500 MCG in SODIUM CHL 0.9% 99 ML IV SCH (02:45)
[2022-07-21] MEDS ORDERED: cefTRIAXone 1GM/50ML D5W 50 ML IV ONE (02:45)
[2022-07-21] MEDS ORDERED: PANTOPRAZOLE 40mg/50ML NS AE 50 ML IV ONE (02:45)
[2022-07-21] MEDS ORDERED: LORazepam 2MG/ML-1ML VIAL IV ONE (03:30)
[2022-07-21] MEDS ORDERED: PANTOPRAZOLE 40 MG/10 ML VIAL INJ IV ONE (03:45)
[2022-07-21 04:08] VITALS: BP 117/56
[2022-07-21 04:20] VITALS: BP 109/48
[2022-07-21 04:33] VITALS: BP 110/48
[2022-07-21] MEDS: ALBUMIN 25% 100 ML IV ONE ×2 (05:00→05:35)
[2022-07-21] MEDS: PANTOPRAZOLE 40mg/50ML NS AE 50 ML IV SCH ×4 (05:00→22:55)
[2022-07-21] MEDS ORDERED: NITROGLYCERIN 0.4 MG SL TAB SL PRN (05:30)
[2022-07-21] MEDS ORDERED: ONDANSETRON HCL 4 MG/2 ML VIAL IV PRN (05:30)
[2022-07-21] MEDS ORDERED: SODIUM CHLORIDE 0.9% 1,000 ML IV SCH (05:30)
[2022-07-21] MEDS: SODIUM CHLORIDE 0.9% 1,000 ML IV SCH ×3 (06:02→19:05)
[2022-07-21 06:49] VITALS: BP 99/54
[2022-07-21 08:40] LABS: Hematocrit 27.2 % (41.0-53.0); Hemoglobin 8.9 g/dL (13.5-17.5); Mean Corpuscular Hemoglobin 25.6 pg (28.0-32.0); Mean Corpuscular Hgb Conc. 32.7 g/dL (32.0-36.0); Mean Corpuscular Volume 78.2 fL (80.0-100.0); Red Blood Cells 3.48 10^6/uL (4.5-5.90); White Blood Cell 4.2 10^3/uL (4.4-10.8)
[2022-07-21 08:41] LABS: Red Cell Distribution Width 21.5 % (11.8-14.3)
[2022-07-21 08:42] LABS: Band Neutrophils % (manual) 0; Basophils % (manual) 0 (0.0-2.0); Blast Cells 0; Eosinophils % (manual) 0 (0-7); Metamyelocytes % 0; Myelocytes % 0; Promyelocytes % 0; Reactive Lymphocytes 0
[2022-07-21 08:57] LABS: Lymphocytes % (manual) 23 (10.0-50.0); Monocytes % (manual) 12 (0-12)
[2022-07-21] MEDS ORDERED: OCTREOTIDE ACETATE 100 MCG in SODIUM CHL 0.9% 50 ML IV ONE (09:00)
[2022-07-21 09:01] LABS: INR 1.17 (0.9-1.15)
[2022-07-21 09:19] LABS: BUN/Creatinine Ratio 42.9; Calcium 8.2 mg/dL (8.5-10.1); Potassium 3.9 mmol/L (3.5-5.1)
[2022-07-21] MEDS: ONDANSETRON HCL 4 MG/2 ML VIAL IV PRN ×2 (10:31→23:32)
[2022-07-21] MEDS: OCTREOTIDE ACETATE 500 MCG in SODIUM CHL 0.9% 99 ML IV SCH ×2 (10:33→19:26)
[2022-07-21] MEDS: NOREPINEPHRINE 8 MG/250ML KIT 250 ML IV SCH (12:34)
[2022-07-21 13:46] LABS: Basophils # (auto) 0 10 ^3/uL (0-0.2); Eosinophils # (auto) 0.1 10 ^3/uL (0-0.8); Lymphocytes # (auto) 0.8 10 ^3/uL (0.4-5.4); Neutrophils # (auto) 3.2 10 ^3/uL (1.6-8.6); Nucleated Red Blood Cells % 0.2 %
[2022-07-21 13:48] LABS: Basophils % (auto) 0.8 % (0.0-2.0); Eosinophils % (auto) 1.7 % (0.0-7.0); Hematocrit 26.9 % (41.0-53.0); Hemoglobin 8.7 g/dL (13.5-17.5); Lymphocytes % (auto) 16.7 % (10.0-50.0); Mean Corpuscular Hemoglobin 25.5 pg (28.0-32.0); Mean Corpuscular Hgb Conc. 32.3 g/dL (32.0-36.0); Mean Corpuscular Volume 79.1 fL (80.0-100.0); Monocytes # (auto) 0.9 10 ^3/uL (0-1.3); Monocytes % (auto) 17.1 % (0.0-12.0); Neutrophils % (auto) 63.7 % (37.0-80.0)
[2022-07-21 17:31] LABS: Eosinophils # (auto) 0.1 10 ^3/uL (0-0.8); Hemoglobin 8.7 g/dL (13.5-17.5)
[2022-07-21 17:33] LABS: Basophils # (auto) 0 10 ^3/uL (0-0.2); Eosinophils % (auto) 2.2 % (0.0-7.0); Hematocrit 26.9 % (41.0-53.0); Lymphocytes # (auto) 0.9 10 ^3/uL (0.4-5.4); Lymphocytes % (auto) 19.4 % (10.0-50.0); Mean Corpuscular Hemoglobin 25.5 pg (28.0-32.0); Mean Corpuscular Hgb Conc. 32.2 g/dL (32.0-36.0); Mean Corpuscular Volume 79.2 fL (80.0-100.0); Monocytes # (auto) 0.7 10 ^3/uL (0-1.3); Monocytes % (auto) 14.5 % (0.0-12.0); Neutrophils # (auto) 2.9 10 ^3/uL (1.6-8.6); Neutrophils % (auto) 62.9 % (37.0-80.0); Nucleated Red Blood Cells % 0.2 %; Red Cell Distribution Width 22.2 % (11.8-14.3); White Blood Cell 4.6 10^3/uL (4.4-10.8)
[2022-07-21 22:22] LABS: Basophils # (auto) 0.1 10 ^3/uL (0-0.2); Eosinophils # (auto) 0.1 10 ^3/uL (0-0.8); Eosinophils % (auto) 2.9 % (0.0-7.0); Hematocrit 25.4 % (41.0-53.0); Hemoglobin 8.2 g/dL (13.5-17.5); Lymphocytes # (auto) 0.9 10 ^3/uL (0.4-5.4); Monocytes # (auto) 0.6 10 ^3/uL (0-1.3); Neutrophils # (auto) 2.6 10 ^3/uL (1.6-8.6); White Blood Cell 4.3 10^3/uL (4.4-10.8)
[2022-07-21 22:25] LABS: Basophils % (auto) 1.4 % (0.0-2.0); Mean Corpuscular Hgb Conc. 32.1 g/dL (32.0-36.0); Mean Corpuscular Volume 77.8 fL (80.0-100.0); Monocytes % (auto) 14.1 % (0.0-12.0); Neutrophils % (auto) 60.6 % (37.0-80.0); Nucleated Red Blood Cells % 0.4 %; Red Blood Cells 3.26 10^6/uL (4.5-5.90)
[2022-07-21 22:27] LABS: Red Cell Distribution Width 23.3 % (11.8-14.3)
[2022-07-21] MEDS ORDERED: ALPRAZolam 0.25 MG TAB PO PRN (23:15)
[2022-07-22 01:39] LABS: Basophils # (auto) 0.1 10 ^3/uL (0-0.2); Eosinophils # (auto) 0.2 10 ^3/uL (0-0.8); Hemoglobin 8.4 g/dL (13.5-17.5); Mean Corpuscular Volume 78.3 fL (80.0-100.0); Monocytes # (auto) 0.8 10 ^3/uL (0-1.3); Neutrophils # (auto) 2.8 10 ^3/uL (1.6-8.6)
[2022-07-22 01:41] LABS: Basophils % (auto) 1.4 % (0.0-2.0); Eosinophils % (auto) 3.7 % (0.0-7.0); Hematocrit 25.3 % (41.0-53.0); Lymphocytes # (auto) 1.1 10 ^3/uL (0.4-5.4); Lymphocytes % (auto) 21.3 % (10.0-50.0); Mean Corpuscular Hgb Conc. 33.2 g/dL (32.0-36.0); Monocytes % (auto) 16.6 % (0.0-12.0); Nucleated Red Blood Cells % 0.2 %; Red Blood Cells 3.24 10^6/uL (4.5-5.90)
[2022-07-22 01:44] LABS: Red Cell Distribution Width 22.4 % (11.8-14.3)
[2022-07-22] MEDS: SODIUM CHLORIDE 0.9% 1,000 ML IV SCH (01:45)
[2022-07-22] MEDS ORDERED: PANTOPRAZOLE 40 MG/10 ML VIAL INJ IV ONE (03:18)
[2022-07-22] MEDS: PANTOPRAZOLE 40mg/50ML NS AE 50 ML IV SCH ×3 (03:26→11:00)
[2022-07-22] MEDS: OCTREOTIDE ACETATE 500 MCG in SODIUM CHL 0.9% 99 ML IV SCH ×2 (05:07→14:11)
[2022-07-22 05:34] LABS: Hemoglobin 8.3 g/dL (13.5-17.5)
[2022-07-22 05:37] LABS: Hematocrit 24.9 % (41.0-53.0)
[2022-07-22 05:54] LABS: BUN/Creatinine Ratio 26.7; Calcium 7.8 mg/dL (8.5-10.1); Potassium 4.1 mmol/L (3.5-5.1)
[2022-07-22] MEDS: NOREPINEPHRINE 8 MG/250ML KIT 250 ML IV SCH (12:00)
[2022-07-22] MEDS ORDERED: MIDODRINE HCL 10 MG TAB PO SCH (12:30)
[2022-07-22 14:33] LABS: Hematocrit 22.6 % (41.0-53.0); Hemoglobin 7.2 g/dL (13.5-17.5)
[2022-07-22 14:43] VITALS: BP 95/48
[2022-07-23] MEDS ORDERED: cefTRIAXone 1GM/50ML D5W 50 ML IV SCH (09:00)
== END 2022-07-22 15:40 | disposition left against medical advice (07) | DRG 378 ==
LOC: ER 23:48 → EDBD 23:48 → TELE 07-21 05:45
PROVIDERS: ADMIT Hospitalist; ATTEND Internal Medicine
PROC: 30233N1 Transfusion of Nonautologous Red Blood Cells into Peripheral Vein, Percutaneous Approach (ICD-10-PCS; principal; 2022-07-21)
DX: K92.0 Hematemesis (principal); D62 Acute posthemorrhagic anemia; K76.6 Portal hypertension; F10.129 Alcohol abuse with intoxication, unspecified; K70.30 Alcoholic cirrhosis of liver without ascites; F17.210 Nicotine dependence, cigarettes, uncomplicated; I10 Essential (primary) hypertension; Z20.822 Contact with and (suspected) exposure to COVID-19; Z53.29 Procedure and treatment not carried out because of patient's decision for other reasons; I95.9 Hypotension, unspecified; R74.8 Abnormal levels of other serum enzymes; Z87.11 Personal history of peptic ulcer disease; Z88.5 Allergy status to narcotic agent
CPT/HCPCS: 36415; 36430; 74177; 80048; 80053; 80320; 83690; 83735; 83880; 84484; 85007; 85014; 85018; 85025; 85027; 85384; 85610; 85730; 86850; 86900; 86901; 86920; 87426; 93005; 96365; 96368; 96375; 99291; C9113; G0378; J0696; J2405; P9047

== ENCOUNTER 2022-08-29 00:58 | Inpatient (IN) | payer BC ==
[2022-08-29] VITALS (40 sets, daily range): BP systolic 94–116; BP diastolic 42–65
[~2022-08-29] VITALS: Ht 170.2 cm; Wt 66.0 kg
[2022-08-29] MEDS ORDERED: OCTREOTIDE ACETATE 100 MCG in SODIUM CHL 0.9% 50 ML IV ONE (01:15)
[2022-08-29] MEDS ORDERED: ONDANSETRON HCL 4 MG/2 ML VIAL IV ONE (01:15)
[2022-08-29] MEDS ORDERED: OCTREOTIDE ACETATE 500 MCG in SODIUM CHL 0.9% 99 ML IV SCH (01:15)
[2022-08-29] MEDS ORDERED: PANTOPRAZOLE 80 MG in SODIUM CHL 0.9% 100 ML IV ONE (01:15)
[2022-08-29] MEDS ORDERED: TRANEXAMIC ACID 1,000 MG in SODIUM CHL 0.9% 100 ML IV ONE (01:15)
[2022-08-29] MEDS ORDERED: PANTOPRAZOLE 40mg/50ML NS AE 50 ML IV ONE ×3 (01:15→14:57)
[2022-08-29 01:45] LABS: White Blood Cell 4.9 10^3/uL (4.4-10.8)
[2022-08-29 01:47] LABS: Basophils # (auto) 0 10 ^3/uL (0-0.2); Basophils % (auto) 0.9 % (0.0-2.0); Eosinophils # (auto) 0.1 10 ^3/uL (0-0.8); Eosinophils % (auto) 1.7 % (0.0-7.0); Hematocrit 14.3 % (41.0-53.0); Lymphocytes # (auto) 0.7 10 ^3/uL (0.4-5.4); Lymphocytes % (auto) 13.6 % (10.0-50.0); Mean Corpuscular Hemoglobin 19.1 pg (28.0-32.0); Mean Corpuscular Hgb Conc. 29.8 g/dL (32.0-36.0); Mean Corpuscular Volume 64.1 fL (80.0-100.0); Monocytes # (auto) 0.4 10 ^3/uL (0-1.3); Monocytes % (auto) 9.1 % (0.0-12.0); Neutrophils # (auto) 3.7 10 ^3/uL (1.6-8.6); Neutrophils % (auto) 74.7 % (37.0-80.0); Red Blood Cells 2.24 10^6/uL (4.5-5.90)
[2022-08-29 01:52] LABS: Nucleated Red Blood Cells % 3.4 %; Red Cell Distribution Width 26.6 % (11.8-14.3)
[2022-08-29 01:53] LABS: Hemoglobin 4.3 g/dL (13.5-17.5)
[2022-08-29 02:00] LABS: Albumin 2.6 g/dL (3.4-5.0); BUN/Creatinine Ratio 14.5 (10.0-20.0); Calcium 7.6 mg/dL (8.5-10.1); Potassium 3.5 mmol/L (3.5-5.1)
[2022-08-29 02:02] LABS: INR 1.21 (0.9-1.15); Partial Thromboplastin Time < 20.0 sec (24.6-33.4)
[2022-08-29 02:03] LABS: Bilirubin, Total 0.4 mg/dL (0.2-1.0); Total Protein 5.7 g/dL (6.4-8.2)
[2022-08-29] MEDS ORDERED: PANTOPRAZOLE 40 MG/10 ML VIAL INJ IV ONE (02:25)
[2022-08-29] MEDS ORDERED: OCTREOTIDE ACETATE 100 MCG/ML VL ONE (02:26)
[2022-08-29] MEDS ORDERED: OCTREOTIDE ACETATE 500 MCG/ML VL ONE (02:27)
[2022-08-29] MEDS ORDERED: TRANEXAMIC ACID 10 ML ONE (03:18)
[2022-08-29] MEDS ORDERED: SODIUM CHLORIDE 0.9% 1,000 ML IV SCH (05:30)
[2022-08-29] MEDS ORDERED: NITROGLYCERIN 0.4 MG SL TAB SL PRN (05:30)
[2022-08-29] MEDS ORDERED: MORPHINE SULFATE INJ 2 MG/ml SYRG IV PRN ×3 (05:30→16:15)
[2022-08-29] MEDS ORDERED: LORazepam 2MG/ML-1ML VIAL IV PRN (06:30)
[2022-08-29 07:16] LABS: Basophils # (auto) 0 10 ^3/uL (0-0.2); Eosinophils # (auto) 0 10 ^3/uL (0-0.8); Monocytes # (auto) 0.4 10 ^3/uL (0-1.3); White Blood Cell 5.4 10^3/uL (4.4-10.8)
[2022-08-29 07:18] LABS: Basophils % (auto) 0.3 % (0.0-2.0); Eosinophils % (auto) 0.2 % (0.0-7.0); Hematocrit 21.3 % (41.0-53.0); Lymphocytes # (auto) 0.5 10 ^3/uL (0.4-5.4); Lymphocytes % (auto) 9.2 % (10.0-50.0); Mean Corpuscular Hgb Conc. 31.5 g/dL (32.0-36.0); Mean Corpuscular Volume 69.6 fL (80.0-100.0); Monocytes % (auto) 7.9 % (0.0-12.0); Neutrophils # (auto) 4.4 10 ^3/uL (1.6-8.6); Neutrophils % (auto) 82.4 % (37.0-80.0); Nucleated Red Blood Cells % 0.3 %; Red Blood Cells 3.06 10^6/uL (4.5-5.90)
[2022-08-29 07:33] LABS: Red Cell Distribution Width 24.4 % (11.8-14.3)
[2022-08-29 07:36] LABS: Albumin 2.6 g/dL (3.4-5.0); BUN/Creatinine Ratio 23.2 (10.0-20.0); Calcium 7.7 mg/dL (8.5-10.1); Hemoglobin 6.7 g/dL (13.5-17.5); Potassium 4.8 mmol/L (3.5-5.1)
[2022-08-29] MEDS: SODIUM CHLORIDE 0.9% 1,000 ML IV SCH ×3 (09:18→23:29)
[2022-08-29] MEDS ORDERED: MEPERIDINE HCL (25 MG/ML) 1ML VIAL ONE (12:11)
[2022-08-29] MEDS ORDERED: fentaNYL CITRATE 100 MCG/2 ML VL ONE (12:11)
[2022-08-29] MEDS ORDERED: MIDAZOLAM HCL 2MG/2ML 2ml VIAL (1mg/ml) ONE (12:12)
[2022-08-29] MEDS ORDERED: PROPOFOL 10 MG/ML 20 ML IV ONE (12:23)
[2022-08-29] MEDS ORDERED: HYDROmorphone HCL 2 MG/ML VL/or syr IV PRN (13:15)
[2022-08-29] MEDS ORDERED: MORPHINE SULFATE 4 MG/ML SYR/VIAL IV PRN (13:15)
[2022-08-29] MEDS ORDERED: ePHEDrine SULFATE 50 MG/ML AMP IV PRN (13:15)
[2022-08-29] MEDS ORDERED: LABETALOL HCL 5 MG/ML 4ML SYRINGE IV PRN (13:15)
[2022-08-29] MEDS ORDERED: MIDAZOLAM HCL 2MG/2ML 2ml VIAL (1mg/ml) IV PRN (13:15)
[2022-08-29] MEDS ORDERED: ONDANSETRON HCL 4 MG/2 ML VIAL IV PRN (13:15)
[2022-08-29] MEDS: OCTREOTIDE ACETATE 500 MCG in SODIUM CHL 0.9% 99 ML IV SCH ×2 (13:47→20:00)
[2022-08-29] MEDS ORDERED: PHENYLEPHRINE HCL 10 MG/ML VL IV ONE (13:49)
[2022-08-29] MEDS ORDERED: ETOMIDATE (2MG/ML) 20ML VIAL IV ONE (13:49)
[2022-08-29] MEDS ORDERED: DexAMETHasone SOD PHOS 10MG/1ML VIAL INJ IV ONE (13:49)
[2022-08-29 14:05] LABS: Basophils # (auto) 0 10 ^3/uL (0-0.2); Eosinophils # (auto) 0 10 ^3/uL (0-0.8); Eosinophils % (auto) 0.9 % (0.0-7.0); Hematocrit 18.9 % (41.0-53.0); Lymphocytes # (auto) 0.6 10 ^3/uL (0.4-5.4); Monocytes # (auto) 0.5 10 ^3/uL (0-1.3); White Blood Cell 4.2 10^3/uL (4.4-10.8)
[2022-08-29 14:07] LABS: Basophils % (auto) 0.7 % (0.0-2.0); Lymphocytes % (auto) 14.3 % (10.0-50.0); Mean Corpuscular Hemoglobin 21.9 pg (28.0-32.0); Mean Corpuscular Hgb Conc. 31.8 g/dL (32.0-36.0); Mean Corpuscular Volume 68.8 fL (80.0-100.0); Monocytes % (auto) 12.5 % (0.0-12.0); Neutrophils % (auto) 71.6 % (37.0-80.0); Nucleated Red Blood Cells % 0.3 %; Red Blood Cells 2.75 10^6/uL (4.5-5.90)
[2022-08-29 14:29] LABS: % Iron Saturation 3.2 % (20-55)
[2022-08-29 14:47] LABS: Red Cell Distribution Width 25.3 % (11.8-14.3)
[2022-08-29] MEDS: PANTOPRAZOLE 40mg/50ML NS AE 50 ML IV SCH ×2 (15:00→20:02)
[2022-08-29 17:56] LABS: Bilirubin, Total 0.9 mg/dL (0.2-1.0); Total Protein 5.6 g/dL (6.4-8.2)
[2022-08-29] MEDS: ONDANSETRON HCL 4 MG/2 ML VIAL IV PRN (19:00)
[2022-08-29] MEDS ORDERED: METOCLOPRAMIDE HCL 5MG/ml INJ 2ml VIAL IV PRN (21:00)
[2022-08-30] VITALS (17 sets, daily range): BP systolic 91–122; BP diastolic 36–60
[2022-08-30] MEDS: PANTOPRAZOLE 40mg/50ML NS AE 50 ML IV SCH ×3 (00:17→10:26)
[2022-08-30] MEDS: OCTREOTIDE ACETATE 500 MCG in SODIUM CHL 0.9% 99 ML IV SCH ×2 (02:43→10:44)
[2022-08-30 04:46] LABS: Basophils # (auto) 0 10 ^3/uL (0-0.2); Eosinophils # (auto) 0.1 10 ^3/uL (0-0.8); Lymphocytes # (auto) 0.5 10 ^3/uL (0.4-5.4)
[2022-08-30 04:48] LABS: Basophils % (auto) 0.3 % (0.0-2.0); Eosinophils % (auto) 1.3 % (0.0-7.0); Hematocrit 25.1 % (41.0-53.0); Hemoglobin 8.4 g/dL (13.5-17.5); Lymphocytes % (auto) 9.3 % (10.0-50.0); Mean Corpuscular Hemoglobin 23.9 pg (28.0-32.0); Mean Corpuscular Hgb Conc. 33.4 g/dL (32.0-36.0); Mean Corpuscular Volume 71.7 fL (80.0-100.0); Monocytes # (auto) 0.6 10 ^3/uL (0-1.3); Monocytes % (auto) 10.3 % (0.0-12.0); Neutrophils # (auto) 4.6 10 ^3/uL (1.6-8.6); Neutrophils % (auto) 78.8 % (37.0-80.0); Nucleated Red Blood Cells % 0.4 %; White Blood Cell 5.9 10^3/uL (4.4-10.8)
[2022-08-30 04:49] LABS: Calcium 7.8 mg/dL (8.5-10.1); Potassium 3.8 mmol/L (3.5-5.1)
[2022-08-30 04:52] LABS: Red Cell Distribution Width 24.3 % (11.8-14.3)
[2022-08-30 04:55] LABS: Albumin 2.6 g/dL (3.4-5.0); BUN/Creatinine Ratio 19.7 (10.0-20.0); Bilirubin, Total 1.1 mg/dL (0.2-1.0); Total Protein 5.5 g/dL (6.4-8.2)
[2022-08-30] MEDS: SODIUM CHLORIDE 0.9% 1,000 ML IV SCH (07:36)
[2022-08-30 10:11] LABS: Basophils # (auto) 0 10 ^3/uL (0-0.2); Hemoglobin 7.8 g/dL (13.5-17.5); Mean Corpuscular Hgb Conc. 32.1 g/dL (32.0-36.0); Monocytes # (auto) 0.6 10 ^3/uL (0-1.3); Nucleated Red Blood Cells % 0.3 %; Red Cell Distribution Width 24.1 % (11.8-14.3)
[2022-08-30 10:13] LABS: Basophils % (auto) 0.8 % (0.0-2.0); Eosinophils # (auto) 0.2 10 ^3/uL (0-0.8); Eosinophils % (auto) 3.1 % (0.0-7.0); Hematocrit 24.2 % (41.0-53.0); Lymphocytes # (auto) 0.5 10 ^3/uL (0.4-5.4); Lymphocytes % (auto) 10.8 % (10.0-50.0); Mean Corpuscular Hemoglobin 23.6 pg (28.0-32.0); Mean Corpuscular Volume 73.7 fL (80.0-100.0); Monocytes % (auto) 12.1 % (0.0-12.0); Neutrophils # (auto) 3.6 10 ^3/uL (1.6-8.6); Neutrophils % (auto) 73.2 % (37.0-80.0); Red Blood Cells 3.29 10^6/uL (4.5-5.90)
[2022-08-30] MEDS: ONDANSETRON HCL 4 MG/2 ML VIAL IV PRN (10:17)
[2022-08-30] MEDS ORDERED: FERR325T20 PO ×2 (10:27→10:31)
[2022-08-30] MEDS ORDERED: PROP20TA73 PO ×2 (10:28→10:31)
[2022-08-31 08:59] LABS: Hepatitis B Surface Antibody Negative (Negative)
[2022-08-31 09:30] LABS: Hepatitis A Total Antibody Negative (Negative)
[2022-08-31 14:07] LABS: Hepatitis C Antibody Negative (Negative)
== END 2022-08-30 13:50 | disposition home or self-care (01) | DRG 432 ==
LOC: EDBD 00:58 → EDUNIT# 00:58 → ER 00:58 → OVERFLOW 05:16 → ICU WEST 14:20
PROVIDERS: ADMIT Internal Medicine; ATTEND Internal Medicine
PROC: 06L38CZ Occlusion of Esophageal Vein with Extraluminal Device, Via Natural or Artificial Opening Endoscopic (ICD-10-PCS; 2022-08-29)
PROC: 30233N1 Transfusion of Nonautologous Red Blood Cells into Peripheral Vein, Percutaneous Approach (ICD-10-PCS; principal; 2022-08-29 12:05)
DX: K70.30 Alcoholic cirrhosis of liver without ascites (principal); I85.01 Esophageal varices with bleeding; K22.11 Ulcer of esophagus with bleeding; D62 Acute posthemorrhagic anemia; K92.2 Gastrointestinal hemorrhage, unspecified; K92.0 Hematemesis; F10.20 Alcohol dependence, uncomplicated; F17.210 Nicotine dependence, cigarettes, uncomplicated; J45.909 Unspecified asthma, uncomplicated; Z88.8 Allergy status to other drugs, medicaments and biological substances; Z87.11 Personal history of peptic ulcer disease; Z87.442 Personal history of urinary calculi
CPT/HCPCS: 36415; 71045; 80053; 80320; 82105; 82390; 83540; 83550; 83735; 84484; 85025; 85610; 85730; 86704; 86706; 86708; 86803; 86850; 86900; 86901; 86920; 87081; 87340; 96365; 96366; 96372; 96375; C9113; G0378; J1100; J2250; J2405; J2704

== ENCOUNTER → 2022-08-30 | Emergency (ER) | payer BC ==
[~2022-08-30] MED LIST changes: +FERR325T20 PO; +PROP20TA73 PO
== END | disposition left against medical advice (07) ==
LOC: ER 18:10
DX: K92.0 Hematemesis (principal); R07.89 Other chest pain; Z53.21 Procedure and treatment not carried out due to patient leaving prior to being seen by health care provider
CPT/HCPCS: 93005

== ENCOUNTER 2023-03-17 05:36 | Inpatient (IN) | payer BC ==
[~2023-03-17] VITALS: Ht 177.8 cm; Wt 55.0 kg
[~2023-03-17 05:36] MED LIST changes: -ESCI-28 PO; +ESCI1TAB36 PO; -ESOM40CA83 PO; +FOLI-119 PO; -FOLI1TAB6 PO; -LEVO500T31 PO; +PROP1TAB53 PO; -PROP20TA73 PO
[2023-03-17 07:15] LABS: Basophils # (auto) 0 10 ^3/uL (0-0.2); Eosinophils # (auto) 0.1 10 ^3/uL (0-0.8); Mean Corpuscular Hemoglobin 16.9 pg (28.0-32.0); Monocytes # (auto) 0.4 10 ^3/uL (0-1.3); Red Blood Cells 4.06 10^6/uL (4.5-5.90); White Blood Cell 4.5 10^3/uL (4.4-10.8)
[2023-03-17 07:19] LABS: Basophils % (auto) 0.4 % (0.0-2.0); Hematocrit 22.9 % (41.0-53.0); Lymphocytes # (auto) 0.3 10 ^3/uL (0.4-5.4); Lymphocytes % (auto) 7.3 % (10.0-50.0); Mean Corpuscular Hgb Conc. 29.9 g/dL (32.0-36.0); Mean Corpuscular Volume 56.5 fL (80.0-100.0); Monocytes % (auto) 9.7 % (0.0-12.0); Neutrophils # (auto) 3.6 10 ^3/uL (1.6-8.6); Neutrophils % (auto) 80.6 % (37.0-80.0)
[2023-03-17 07:27] LABS: Red Cell Distribution Width 21.9 % (11.8-14.3)
[2023-03-17 07:28] LABS: INR 1.21 (0.9-1.15); Partial Thromboplastin Time 23.5 SEC (24.5-34.5); Prothrombin Time 12.5 sec (9.3-11.8)
[2023-03-17 07:30] LABS: Hemoglobin 6.9 g/dL (13.5-17.5)
[2023-03-17] MEDS ORDERED: OCTREOTIDE ACETATE 500 MCG in SODIUM CHL 0.9% 99 ML IV SCH (07:30)
[2023-03-17] MEDS ORDERED: PANTOPRAZOLE 40 MG/10 ML VIAL INJ IV ONE ×2 (07:30→13:00)
[2023-03-17] MEDS ORDERED: OCTREOTIDE ACETATE 100 MCG in SODIUM CHL 0.9% 50 ML IV ONE (07:30)
[2023-03-17 08:02] LABS: Alanine Aminotransferase 15 U/L (7-40); Alkaline Phosphatase 56 U/L (46-116); Anion Gap 9 (5-15); Blood Alcohol < 3.0 mg/dL (<10); Calcium 8.5 mg/dL (8.5-10.1); Carbon Dioxide 24 mmol/L (20-30); Chloride 106 mmol/L (98-107); Glucose 106 mg/dL (74-106); Potassium 4.2 mmol/L (3.5-5.1); Sodium 139 mmol/L (136-145)
[2023-03-17 08:03] LABS: Albumin 3.9 g/dL (3.2-4.8); Aspartate Aminotransferase 17 U/L (13-40); BUN/Creatinine Ratio 13.5 (10.0-20.0); Bilirubin, Total 0.6 mg/dL (0.2-1.0); Blood Urea Nitrogen 7 mg/dL (9-23); Total Protein 6.8 g/dL (5.7-8.2)
[2023-03-17] MEDS ORDERED: IOHEXOL 300 MG/ML 100ML BOTTLE IJ ONE (08:15)
[2023-03-17] MEDS ORDERED: SODIUM CHLORIDE 0.9% 1,000 ML IV ONE ×2 (08:30→11:45)
[2023-03-17 09:00] VITALS: PULSE 90; RESP 17; O2SAT 100
[2023-03-17 09:05] LABS: Anisocytosis Slight; Lipase 59 U/L (12-53); Magnesium 2.1 mg/dL (1.6-2.6)
[2023-03-17 09:06] LABS: Hypochromia Marked; Ovalocytes FEW; Platelet Estimate Decreased; Tear Drop Cells FEW
[2023-03-17 09:07] LABS: Urine Bacteria NONE SEEN /hpf (None Seen); Urine Blood Negative /uL (Negative); Urine Clarity Clear (Clear); Urine Color Yellow (Yellow); Urine Hyaline Cast FEW /lpf (0 - 2); Urine Mucus FEW (None Seen); Urine Protein, UAD TRACE (Negative); Urine Specific Gravity 1.027 (1.001-1.035); Urine Urobilinogen Normal (Negative); Urine WBC 1 /hpf (0 - 3)
[2023-03-17] MEDS ORDERED: ONDANSETRON HCL 4 MG/2 ML VIAL IV PRN (11:45)
[2023-03-17] MEDS ORDERED: LORazepam 2MG/ML-1ML VIAL IV ONE (11:45)
[2023-03-17 11:48] LABS: Hematocrit 20.9 % (41.0-53.0)
[2023-03-17 11:51] LABS: Hemoglobin 6.1 g/dL (13.5-17.5)
[2023-03-17 12:45] VITALS: BP 102/52; PULSE 90; RESP 15; TEMP 97.7
[2023-03-17] MEDS ORDERED: OCTREOTIDE ACETATE 50 MCG in SODIUM CHL 0.9% 50 ML IV ONE (12:45)
[2023-03-17] MEDS: OCTREOTIDE ACETATE 500 MCG in SODIUM CHL 0.9% 99 ML IV SCH ×2 (12:45→20:35)
[2023-03-17] MEDS ORDERED: PANTOPRAZOLE 80 MG in SODIUM CHL 0.9% 100 ML IV ONE (12:45)
[2023-03-17] MEDS: PANTOPRAZOLE 40mg/50ML NS AE 50 ML IV SCH ×3 (12:45→20:55)
[2023-03-17 13:00] VITALS: BP 103/62; PULSE 76; RESP 18; TEMP 98.1
[2023-03-17 15:45] VITALS: BP 104/60; PULSE 81; RESP 15; TEMP 98
[2023-03-17] MEDS ORDERED: PANTOPRAZOLE 40 MG/10 ML VIAL INJ IV SCH (16:00)
[2023-03-17 18:40] LABS: Basophils # (auto) 0 10 ^3/uL (0-0.2); Eosinophils # (auto) 0.1 10 ^3/uL (0-0.8); Eosinophils % (auto) 5.7 % (0.0-7.0); Hematocrit 24.9 % (41.0-53.0); Hemoglobin 7.4 g/dL (13.5-17.5); Lymphocytes # (auto) 0.5 10 ^3/uL (0.4-5.4); Lymphocytes % (auto) 21.6 % (10.0-50.0); Mean Corpuscular Hemoglobin 17.9 pg (28.0-32.0); Mean Corpuscular Hgb Conc. 29.7 g/dL (32.0-36.0); Mean Corpuscular Volume 60.2 fL (80.0-100.0); Monocytes # (auto) 0.3 10 ^3/uL (0-1.3); Monocytes % (auto) 12.9 % (0.0-12.0); Neutrophils # (auto) 1.4 10 ^3/uL (1.6-8.6); Neutrophils % (auto) 58.8 % (37.0-80.0); Nucleated Red Blood Cells % 0.1 %; Red Blood Cells 4.14 10^6/uL (4.5-5.90); White Blood Cell 2.3 10^3/uL (4.4-10.8)
[2023-03-17 18:41] LABS: Red Cell Distribution Width 25.2 % (11.8-14.3)
[2023-03-17 19:15] LABS: Anisocytosis Slight; Hypochromia Moderate; Polychromasia Slight
[2023-03-17 19:16] LABS: Large Platelets FEW; Ovalocytes FEW; Platelet Estimate Decrea
[2023-03-17 20:19] VITALS: PULSE 89; RESP 12; O2SAT 100
[2023-03-18 01:06] LABS: Hematocrit 24.8 % (41.0-53.0); Hemoglobin 7.5 g/dL (13.5-17.5)
[2023-03-18] MEDS: PANTOPRAZOLE 40mg/50ML NS AE 50 ML IV SCH ×2 (02:25→07:08)
[2023-03-18 05:11] LABS: Basophils # (auto) 0 10 ^3/uL (0-0.2); Eosinophils # (auto) 0.1 10 ^3/uL (0-0.8); Mean Corpuscular Hgb Conc. 29.9 g/dL (32.0-36.0); Monocytes # (auto) 0.3 10 ^3/uL (0-1.3); White Blood Cell 2.3 10^3/uL (4.4-10.8)
[2023-03-18 05:13] LABS: Alanine Aminotransferase 14 U/L (7-40); Albumin 3.9 g/dL (3.2-4.8); Alkaline Phosphatase 69 U/L (46-116); Anion Gap 6 (5-15); Aspartate Aminotransferase 17 U/L (13-40); BUN/Creatinine Ratio 12.9 (10.0-20.0); Basophils % (auto) 1.1 % (0.0-2.0); Bilirubin, Total 1.6 mg/dL (0.2-1.0); Blood Urea Nitrogen 8 mg/dL (9-23); Calcium 8.5 mg/dL (8.7-10.4); Carbon Dioxide 27 mmol/L (20-30); Chloride 105 mmol/L (98-107); Glucose 95 mg/dL (74-106); Hematocrit 26.2 % (41.0-53.0); Hemoglobin 7.8 g/dL (13.5-17.5); Lymphocytes # (auto) 0.7 10 ^3/uL (0.4-5.4); Lymphocytes % (auto) 28.7 % (10.0-50.0); Mean Corpuscular Hemoglobin 18.1 pg (28.0-32.0); Mean Corpuscular Volume 60.7 fL (80.0-100.0); Monocytes % (auto) 11.4 % (0.0-12.0); Neutrophils # (auto) 1.2 10 ^3/uL (1.6-8.6); Neutrophils % (auto) 52.8 % (37.0-80.0); Potassium 4.1 mmol/L (3.5-5.1); Red Blood Cells 4.32 10^6/uL (4.5-5.90); Sodium 138 mmol/L (136-145)
[2023-03-18 05:14] LABS: Total Protein 6.8 g/dL (5.7-8.2)
[2023-03-18 05:28] LABS: Red Cell Distribution Width 25.1 % (11.8-14.3)
[2023-03-18 09:11] VITALS: BP 90/45; PULSE 78; RESP 15; O2SAT 98
== END 2023-03-18 09:12 | disposition left against medical advice (07) | DRG 432 ==
LOC: EDBD 05:36 → ER 05:36 → TELE 08:47
PROVIDERS: ADMIT Student in an Organized Health Care Education/Training Program; ATTEND Student in an Organized Health Care Education/Training Program
PROC: 30233N1 Transfusion of Nonautologous Red Blood Cells into Peripheral Vein, Percutaneous Approach (ICD-10-PCS; principal; 2023-03-17)
DX: K70.30 Alcoholic cirrhosis of liver without ascites (principal); I85.11 Secondary esophageal varices with bleeding; F17.210 Nicotine dependence, cigarettes, uncomplicated; Z53.29 Procedure and treatment not carried out because of patient's decision for other reasons; I10 Essential (primary) hypertension; K21.9 Gastro-esophageal reflux disease without esophagitis; F41.9 Anxiety disorder, unspecified; Z88.5 Allergy status to narcotic agent; Z87.11 Personal history of peptic ulcer disease; Z84.1 Family history of disorders of kidney and ureter
CPT/HCPCS: 36415; 36430; 71045; 74177; 80053; 80320; 81001; 82140; 83690; 83735; 85014; 85018; 85025; 85610; 85730; 86850; 86900; 86901; 86920; C9113; G0378

== ENCOUNTER 2023-03-18 19:46 | Inpatient (IN) | payer BC, MEDICAID ==
[~2023-03-18] VITALS: Ht 175.3 cm; Wt 57.9 kg
[2023-03-18] MEDS ORDERED: ONDANSETRON HCL 4 MG/2 ML VIAL IV ONE (20:30)
[2023-03-18] MEDS ORDERED: MORPHINE SULFATE 4 MG/ML SYR/VIAL IV ONE (20:30)
[2023-03-18] MEDS ORDERED: LACTATED RINGER'S 1,000 ML IV ONE (20:30)
[2023-03-18 21:16] LABS: Basophils # (auto) 0 10 ^3/uL (0-0.2); Hemoglobin 8.6 g/dL (13.5-17.5); Monocytes # (auto) 0.4 10 ^3/uL (0-1.3); White Blood Cell 5.5 10^3/uL (4.4-10.8)
[2023-03-18 21:19] LABS: Basophils % (auto) 0.5 % (0.0-2.0); Eosinophils # (auto) 0.1 10 ^3/uL (0-0.8); Eosinophils % (auto) 1.1 % (0.0-7.0); Hematocrit 28.2 % (41.0-53.0); Lymphocytes # (auto) 0.3 10 ^3/uL (0.4-5.4); Lymphocytes % (auto) 5.1 % (10.0-50.0); Mean Corpuscular Hgb Conc. 30.4 g/dL (32.0-36.0); Mean Corpuscular Volume 59.2 fL (80.0-100.0); Monocytes % (auto) 7.2 % (0.0-12.0); Neutrophils # (auto) 4.7 10 ^3/uL (1.6-8.6); Neutrophils % (auto) 86.1 % (37.0-80.0); Nucleated Red Blood Cells % 0.1 %; Red Blood Cells 4.76 10^6/uL (4.5-5.90)
[2023-03-18 21:29] LABS: Lactic Acid w/Reflex 2.6 mmol/L (0.4-2.0)
[2023-03-18 21:30] LABS: Alanine Aminotransferase 14 U/L (7-40); Albumin 4.4 g/dL (3.2-4.8); Alkaline Phosphatase 76 U/L (46-116); Anion Gap 8 (5-15); Aspartate Aminotransferase 19 U/L (13-40); BUN/Creatinine Ratio 12.5 (10.0-20.0); Bilirubin, Total 0.9 mg/dL (0.2-1.0); Blood Alcohol 3.2 mg/dL (<10); Blood Urea Nitrogen 8 mg/dL (9-23); Calcium 8.9 mg/dL (8.7-10.4); Carbon Dioxide 25 mmol/L (20-30); Chloride 103 mmol/L (98-107); Glucose 117 mg/dL (74-106); Lipase 44 U/L (12-53); Magnesium 2.1 mg/dL (1.6-2.6); Potassium 3.5 mmol/L (3.5-5.1); Sodium 136 mmol/L (136-145)
[2023-03-18 21:31] LABS: Total Protein 7.6 g/dL (5.7-8.2)
[2023-03-18 21:35] LABS: INR 1.14 (0.9-1.15); Partial Thromboplastin Time 24.5 SEC (24.5-34.5); Prothrombin Time 11.9 sec (9.3-11.8)
[2023-03-18 21:49] LABS: CRP High Sensitivity 0.06 mg/dL (<1.0)
[2023-03-18 22:03] LABS: Erythrocyte Sedimentation Rate 2 mm/hr (0-20)
[2023-03-18 22:22] LABS: Anisocytosis Slight; Hypochromia Moderate
[2023-03-18 22:23] LABS: Large Platelets FEW; Ovalocytes FEW; Platelet Estimate Decrea
[2023-03-19] VITALS (8 sets, daily range): BP systolic 113–135; BP diastolic 52–103; PULSE 72–88; RESP 14–20; O2SAT 95–100
[2023-03-19] MEDS ORDERED: OCTREOTIDE ACETATE 100 MCG in SODIUM CHL 0.9% 50 ML IV ONE (05:15)
[2023-03-19] MEDS ORDERED: PANTOPRAZOLE 40mg/50ML NS AE 50 ML IV ONE (05:15)
[2023-03-19] MEDS ORDERED: PANTOPRAZOLE 80 MG in SODIUM CHL 0.9% 100 ML IV ONE (05:15)
[2023-03-19] MEDS ORDERED: PANTOPRAZOLE 40 MG/10 ML VIAL INJ IV ONE (05:42)
[2023-03-19] MEDS ORDERED: OCTREOTIDE ACETATE 100 MCG/ML VL ONE (05:43)
[2023-03-19] MEDS ORDERED: OCTREOTIDE ACETATE 500 MCG/ML VL ONE (05:43)
[2023-03-19] MEDS ORDERED: NITROGLYCERIN 0.4 MG SL TAB SL PRN (06:45)
[2023-03-19] MEDS: OCTREOTIDE ACETATE 500 MCG in SODIUM CHL 0.9% 99 ML IV SCH ×3 (06:49→19:48)
[2023-03-19] MEDS: PANTOPRAZOLE 40mg/50ML NS AE 50 ML IV SCH ×4 (07:00→22:06)
[2023-03-19] MEDS ORDERED: SOD CHL 0.45% 1,000 ML IV ONE (07:00)
[2023-03-19] MEDS: ONDANSETRON HCL 4 MG/2 ML VIAL IV PRN ×2 (11:45→18:02)
[2023-03-19] MEDS: MORPHINE SULFATE INJ 2 MG/ml SYRG IV PRN ×2 (11:46→18:02)
[2023-03-20] VITALS (13 sets, daily range): BP systolic 108–128; BP diastolic 20–71; PULSE 60–70; RESP 12–18; TEMP 97.8–98.3; O2SAT 95–100
[2023-03-20] MEDS: PANTOPRAZOLE 40mg/50ML NS AE 50 ML IV SCH ×5 (03:12→23:09)
[2023-03-20] MEDS: OCTREOTIDE ACETATE 500 MCG in SODIUM CHL 0.9% 99 ML IV SCH ×2 (05:07→21:30)
[2023-03-20] MEDS: MORPHINE SULFATE 4 MG/ML SYR/VIAL IV PRN ×2 (05:32→21:44)
[2023-03-20 06:12] LABS: Hemoglobin 7.4 g/dL (13.5-17.5)
[2023-03-20 06:15] LABS: Hematocrit 24.3 % (41.0-53.0); Mean Corpuscular Hemoglobin 18.2 pg (28.0-32.0); Mean Corpuscular Hgb Conc. 30.5 g/dL (32.0-36.0); Mean Corpuscular Volume 59.5 fL (80.0-100.0); Red Blood Cells 4.08 10^6/uL (4.5-5.90); White Blood Cell 3.7 10^3/uL (4.4-10.8)
[2023-03-20 06:30] LABS: Red Cell Distribution Width 24.5 % (11.8-14.3)
[2023-03-20 06:31] LABS: Alanine Aminotransferase 11 U/L (7-40); Alkaline Phosphatase 57 U/L (46-116); Anion Gap 7 (5-15); BUN/Creatinine Ratio 12.5 (10.0-20.0); Blood Urea Nitrogen 7 mg/dL (9-23); Calcium 8.1 mg/dL (8.5-10.1); Carbon Dioxide 27 mmol/L (20-30); Chloride 106 mmol/L (98-107); Glucose 84 mg/dL (74-106); Potassium 3.9 mmol/L (3.5-5.1); Sodium 140 mmol/L (136-145)
[2023-03-20 06:32] LABS: Albumin 3.6 g/dL (3.2-4.8); Aspartate Aminotransferase 12 U/L (13-40); Total Protein 6.3 g/dL (5.7-8.2)
[2023-03-20 06:33] LABS: Band Neutrophils % (manual) 0; Basophils % (manual) 0 (0.0-2.0); Metamyelocytes % 0; Myelocytes % 0; Promyelocytes % 0
[2023-03-20 06:34] LABS: Blast Cells 0; Reactive Lymphocytes 0
[2023-03-20 07:25] LABS: Eosinophils % (manual) 3 (0-7); Lymphocytes % (manual) 18 (10.0-50.0); Monocytes % (manual) 4 (0-12)
[2023-03-20 07:26] LABS: Anisocytosis Slight; Giant Platelets Few; Hypochromia Moderate; Platelet Estimate Decreased
[2023-03-20] MEDS ORDERED: diphenhdrAMINE HCL 50 MG/1 ML VL ONE (07:43)
[2023-03-20] MEDS ORDERED: LIDOCAINE VISCOUS 2% 15ML UD ONE (07:43)
[2023-03-20] MEDS ORDERED: FLUMAZENIL 0.1 MG/ML INJ 10ML MDV IV ONE (07:59)
[2023-03-20] MEDS ORDERED: NALOXONE HCL 0.4 MG/ML VIAL ONE (07:59)
[2023-03-20] MEDS: MIDAZOLAM HCL 2MG/2ML 2ml VIAL (1mg/ml) ONE ×4 (08:31→08:42)
[2023-03-20] MEDS: fentaNYL CITRATE 100 MCG/2 ML VL ONE ×3 (08:31→08:38)
[2023-03-20] MEDS ORDERED: fentaNYL CITRATE 100 MCG/2 ML VL ONE (08:42)
[2023-03-20] MEDS ORDERED: ALPR0.254 PO (12:44)
[2023-03-20] MEDS: MORPHINE SULFATE INJ 2 MG/ml SYRG IV PRN (16:29)
[2023-03-20] MEDS: ONDANSETRON HCL 4 MG/2 ML VIAL IV PRN (21:43)
[2023-03-21] MEDS: MORPHINE SULFATE 4 MG/ML SYR/VIAL IV PRN (03:07)
[2023-03-21] MEDS: PANTOPRAZOLE 40mg/50ML NS AE 50 ML IV SCH ×3 (03:59→14:18)
[2023-03-21 05:00] VITALS: BP 114/54; PULSE 66; RESP 16; TEMP 97.8; O2SAT 95
[2023-03-21] MEDS: OCTREOTIDE ACETATE 500 MCG in SODIUM CHL 0.9% 99 ML IV SCH ×2 (07:23→17:15)
[2023-03-21 08:00] VITALS: BP 108/60; PULSE 62; PULSE 71; PULSE 72; RESP 18; TEMP 98.4; O2SAT 100; O2SAT 98
[2023-03-21 08:24] VITALS: BP 115/52; PULSE 68; RESP 16; TEMP 98.6
[2023-03-21 09:00] VITALS: BP 101/63; PULSE 73; RESP 16; TEMP 98.3; O2SAT 99
[2023-03-21 10:41] LABS: Albumin 3.7 g/dL (3.2-4.8); Alkaline Phosphatase 59 U/L (46-116); Anion Gap 5 (5-15); Aspartate Aminotransferase 16 U/L (13-40); Calcium 8.4 mg/dL (8.5-10.1); Carbon Dioxide 29 mmol/L (20-30); Chloride 102 mmol/L (98-107); Glucose 113 mg/dL (74-106); Potassium 3.9 mmol/L (3.5-5.1); Sodium 136 mmol/L (136-145)
[2023-03-21 10:42] LABS: Total Protein 6.5 g/dL (5.7-8.2)
[2023-03-21 10:48] LABS: Hemoglobin 7.8 g/dL (13.5-17.5); Mean Corpuscular Hemoglobin 18.1 pg (28.0-32.0); White Blood Cell 3.6 10^3/uL (4.4-10.8)
[2023-03-21 10:50] LABS: Hematocrit 25.9 % (41.0-53.0); Mean Corpuscular Hgb Conc. 30.1 g/dL (32.0-36.0); Mean Corpuscular Volume 60.3 fL (80.0-100.0); Red Blood Cells 4.29 10^6/uL (4.5-5.90)
[2023-03-21 10:57] LABS: Red Cell Distribution Width 25.4 % (11.8-14.3)
[2023-03-21 11:00] LABS: Band Neutrophils % (manual) 0; Basophils % (manual) 0 (0.0-2.0); Blast Cells 0; Metamyelocytes % 0; Myelocytes % 0; Promyelocytes % 0; Reactive Lymphocytes 0
[2023-03-21 11:16] LABS: Alanine Aminotransferase 9 U/L (7-40); BUN/Creatinine Ratio 8.6 (10.0-20.0); Blood Urea Nitrogen < 5 mg/dL (9-23)
[2023-03-21 13:00] VITALS: BP 101/56; PULSE 86; RESP 18; TEMP 98.4; O2SAT 98
[2023-03-21 13:46] LABS: Eosinophils % (manual) 4 (0-7); Lymphocytes % (manual) 12 (10.0-50.0); Monocytes % (manual) 9 (0-12); Platelet Estimate Decreased
[2023-03-21 13:47] LABS: Anisocytosis Moderate; Hypochromia Marked
[2023-03-21] MEDS ORDERED: PANT40TA2 PO (13:50)
[2023-03-21] MEDS ORDERED: PROP1TAB51 PO (13:50)
[2023-03-21] MEDS: MORPHINE SULFATE INJ 2 MG/ml SYRG IV PRN (14:18)
[2023-03-21 14:48] VITALS: BP 110/58; PULSE 62; RESP 16
== END 2023-03-21 18:45 | disposition home or self-care (01) | DRG 432 ==
LOC: ER 19:46 → TELE 03-19 06:45 → TELE-EAST 03-20 12:21
PROVIDERS: ADMIT Internal Medicine; ATTEND Student in an Organized Health Care Education/Training Program
PROC: 06L38CZ Occlusion of Esophageal Vein with Extraluminal Device, Via Natural or Artificial Opening Endoscopic (ICD-10-PCS; 2023-03-20)
PROC: 0DB78ZX Excision of Stomach, Pylorus, Via Natural or Artificial Opening Endoscopic, Diagnostic (ICD-10-PCS; principal; 2023-03-20 08:20)
DX: K70.30 Alcoholic cirrhosis of liver without ascites (principal); I85.11 Secondary esophageal varices with bleeding; K76.6 Portal hypertension; I86.4 Gastric varices; K29.70 Gastritis, unspecified, without bleeding; I10 Essential (primary) hypertension; F10.10 Alcohol abuse, uncomplicated; F15.10 Other stimulant abuse, uncomplicated; Z88.5 Allergy status to narcotic agent; Z87.11 Personal history of peptic ulcer disease; Z82.5 Family history of asthma and other chronic lower respiratory diseases; Z84.1 Family history of disorders of kidney and ureter; Z83.79 Family history of other diseases of the digestive system
CPT/HCPCS: 36415; 43239; 43244; 80053; 80320; 82010; 82140; 83605; 83690; 83735; 83880; 83930; 84443; 84484; 85007; 85025; 85027; 85610; 85652; 85730; 86141; C9113; G0378; J2250; J2405

== ENCOUNTER 2024-05-05 20:39 | Emergency (ER) | payer BC, MEDICAID ==
[~2024-05-05] VITALS: Ht 162.6 cm; Wt 54.1 kg
[~2024-05-05 20:39] MED LIST changes: +ALPR0.254 PO; -CHL25C GT; -FERR325T20 PO; -FOLI-119 PO; -LACT10SO70 PO; -ONDA-144 PO; +PROP1TAB51 PO; -PROP1TAB53 PO; -THIA100T10 PO
[2024-05-05 20:50] VITALS: BP 110/62; PULSE 104; RESP 19; O2SAT 100
== END 2024-05-05 21:35 | disposition left against medical advice (07) ==
LOC: ER 20:39
DX: M79.644 Pain in right finger(s) (principal); Z53.21 Procedure and treatment not carried out due to patient leaving prior to being seen by health care provider

== ENCOUNTER → 2024-06-22 | Emergency (ER) | payer MEDICAID ==
[~2024-06-22] VITALS: Ht 154.9 cm; Wt 55.1 kg
[~2024-06-22] MED LIST changes: +MORPHINE SULFATE 4 MG/ML SYR/VIAL IV ONE; +PANTOPRAZOLE 40 MG/10 ML VIAL INJ IV ONE; +PROCHLORPERAZINE EDISYLATE 5 MG/ML 2ML VIAL IV ONE; +SODIUM CHLORIDE 0.9% 1,000 ML IVB ONE
[2024-06-22 14:40] VITALS: BP 105/56; PULSE 87; RESP 18; O2SAT 99
--- NOTE | 2024-06-22 15:21 | ED.PDOC ---
GI ASSESSMENT HPI Comments 28 y.o male presents to the ED for a chief complaint of lower back pain radiating to his abdomen associated with intermittent nausea and vomiting that has presented today. Patient reports pain diffused throughout abdomen region, is constant, and has no alleviating factors. Patient has a history of pancreatitis but denies any recent alcohol use. He denies any diarrhea, fever, chills, bloody stool. Chief Complaint: Abdominal Pain Time Seen by MD: 15:15 Primary Care Provider: NONE Reviewed Notes: Nurses Notes, Medications, Allergies Allergies: Coded Allergies: Hydrocodone (Verified Allergy, Mild, 08/29/22) ITCHY Home Meds Active Scripts Propranolol HCl (Propranolol Hydrochloride) 10 Mg Tab, 10 MG PO BID for 90 Days, #180 TAB 1 Refill Prov:DONI NEAL DO 03/21/23 Pantoprazole Sodium Sesquihydr (Protonix) 40 Mg Tab, 40 MG PO DAILY, #90 TAB 1 Refill Prov:DONI NEAL DO 03/21/23 Reported Medications Alprazolam (Alprazolam) 0.25 Mg Tab, 1 TAB PO DAILY, #30 TAB 03/20/23 Escitalopram Oxalate (ESCITALOPRAM OXALATE) 10 Mg Tab, 1 TAB PO DAILY, #30 TAB 3 Refills 06/01/22 Hydroxyzine Hcl (Hydroxyzine Hcl) 25 Mg Tab, 25 MG PO 4XD for ANXIETY for 30 Days, #120 MG 06/01/22 Docusate Sodium (Colace) 100 Mg Cap, 1 CAP PO BID, #30 CAP 08/23/21 Information Source: Patient, Relative Mode of Arrival: Wheelchair Timing: Hours Duration: Since onset Quality: Aching, Sharp Vomitus: Soft Stool: Normal Severity: Moderate Recent: None Recent Hx of: None Pain Location: Diffuse Modifying Factors: Nothing Associated sign and symptoms: Nausea, Vomiting, Abdominal Pain Past Medical History PAST MEDICAL HISTORY: Anemia, Liver, PUD Past Medical History (Other): esophageal varices Surgical History: Denies all surgeries Family History Family History: Reviewed,noncontributory to illness Social History Smoker: Non-Smoker Alcohol: Denies ETOH Use Drugs: Marijuana Lives In: Home Constitutional: denies: chills, diaphoresis, fatigue, fever, malaise, sweats, weakness, others EENTM: denies: blurred vision, double vision, ear bleeding, ear discharge, ear drainage, ear pain, ear ringing, eye pain, eye redness, hearing loss, mouth pain, mouth swelling, nasal discharge, nose bleeding, nose congestion, nose pain, photophobia, tearing, throat pain, throat swelling, voice changes, others Respiratory: denies: cough, hemoptysis, orthopnea, SOB at rest, shortness of breath, SOB with excertion, stridor, wheezing, others Cardiovascular: denies: chest pain, dizzy spells, diaphoresis, Dyspnea on exertion, edema, irregular heart beat, left arm pain, lightheadedness, palpitations, PND, syncope, others Gastrointestinal: reports: abdominal pain, nausea, vomiting; denies: abdomen distended, blood streaked bowels, constipated, diarrhea, dysphagia, difficulty swallowing, hematemesis, melena, poor appetite, poor fluid intake, rectal bleeding, rectal pain, others Genitourinary: denies: burning, dysuria, flank pain, frequency, hematuria, incontinence, penile discharge, penile sore, pain, testicle pain, testicle swelling, urgency, others Neurological: denies: dizziness, fainting, headache, left sided numbness, left sided weakness, numbness, paresthesia, pre-existing deficit, right sided numbness, right sided weakness, seizure, speech problems, tingling, tremors, weakness, others Musculoskeletal: reports: back pain; denies: gout, joint pain, joint swelling, muscle pain, muscle stiffness, neck pain, others Integumetry: denies: bruises, change in color, change in hair/nails, dryness, laceration, lesions, lumps, rash, wounds, others Allergic/Immunocompromised: denies: Difficulty Healing, Frequent Infections, Hives, Itching, others Hematologic/Lymphatic: denies: anemia, blood clots, easy bleeding, easy bruising, swollen glands, others Endocrine: denies: excessive hunger, excessive sweating, excessive thirst, excessive urination, flushing, intolerance to cold, intolerance to heat, unexplained weight gain, unexplained weight loss, others Psychiatric: denies: anxiety, bipolar disorder, depression, hopeless, panic disorder, schizophrenia, sleepless, suicidal, others All Other Systems: Reviewed and Negative Physical Exam General Appearance: Mild Distress HEENT: Normal ENT Inspection, Pharynx Normal, TMs Normal Neck: Full Range of Motion, Non-Tender, Normal, Normal Inspection Respiratory: Chest Non-Tender, Lungs Clear, No Accessory Muscle Use, No Resp iratory Distress, Normal Breath Sounds Cardiovascular: No Edema, No JVD, No Murmur, No Gallop, Normal Peripheral Pulses, Regular Rate/Rhythm Breast Exam: Deferred Gastrointestinal: Epigastric, No Organomegaly, No Pulsatile Mass, Normal Bowel Sounds, Soft, Tenderness Genitalia: Deferred Pelvic: Deferred Rectal: Deferred Extremities: No calf tenderness, Normal capillary refill, Normal inspection, Normal range of motion, Non-tender, No pedal edema Musculoskeletal : Apperance: Normal Neurologic: Alert, administrative assistant office manager II-XII nml as Tested, No Motor Deficits, Normal Affect, Normal Mood, No Sensory Deficits Cerebellar Function: Normal Reflexes: Normal Skin: Dry, Normal Color, Warm Lymphatic: No Adenopathy Was a procedure done? Was a procedure done?: No GI differential Dx Differential Diagnosis: Esophagitis, Gastritis/PUD, Gastroenteritis, Dehydration, Anemia, Esophageal Varicies X-Ray, Labs, Meds, VS Vital Signs Date Time Temp Pulse Resp B/P (MAP) Pulse Ox O2 Delivery O2 Flow Rate FiO2 06/22/24 14:40 98.3 87 18 105/56 (72) 99 Lab Test 06/22/24 16:31 Range/Units White Blood Count 5.5 4.4-10.8 10^3/uL Red Blood Count 4.35 L 4.5-5.90 10^6/uL Hemoglobin 8.2 L 13.5-17.5 g/dL Hematocrit 26.8 L 41.0-53.0 % Mean Corpuscular Volume 61.6 L 80.0-100.0 fL Mean Corpuscular Hemoglobin 18.9 L 28.0-32.0 pg Mean Corpuscular Hemoglobin Concent 30.6 L 32.0-36.0 g/dL Red Cell Distribution Width 20.3 H 11.8-14.3 % Platelet Count 89 L 140-450 10^3/uL Mean Platelet Volume 8.8 6.9-10.8 fL Neutrophils (%) (Auto) 88.9 H 37.0-80.0 % Lymphocytes (%) (Auto) 5.1 L 10.0-50.0 % Monocytes (%) (Auto) 5.4 0.0-12.0 % Eosinophils (%) (Auto) 0.4 0.0-7.0 % Basophils (%) (Auto) 0.2 0.0-2.0 % Neutrophils # (Auto) 4.9 1.6-8.6 10 ^3/uL Lymphocytes # (Auto) 0.3 L 0.4-5.4 10 ^3/uL Monocytes # (Auto) 0.3 0-1.3 10 ^3/uL Eosinophils # (Auto) 0 0-0.8 10 ^3/uL Basophils # (Auto) 0 0-0.2 10 ^3/uL Nucleated Red Blood Cells 0.0 % Platelet Estimate Pending Sodium Level 139 136-145 mmol/L Potassium Level 3.9 3.5-5.1 mmol/L Chloride Level 106 98-107 mmol/L Carbon Dioxide Level 25 20-31 mmol/L Anion Gap 8 5-15 Blood Urea Nitrogen 10 9-23 mg/dL Creatinine 0.60 L 0.700-1.30 mg/dL Glomerular Filtration Rate Calc 137 >90 mL/min BUN/Creatinine Ratio 16.7 10.0-20.0 Serum Glucose 157 H 74-106 mg/dL Calcium Level 9.6 8.7-10.4 mg/dL Total Bilirubin 0.6 0.2-1.0 mg/dL Aspartate Amino Transferase (AST) 14 13-40 U/L Alanine Aminotransferase (ALT) 13 7-40 U/L Alkaline Phosphatase 77 46-116 U/L Total Protein 7.7 5.7-8.2 g/dL Albumin 4.5 3.2-4.8 g/dL Lipase 33 12-53 U/L Patient's CBC shows anemia with a hemoglobin of 8.2 and hematocrit of 26.8 The chemistry panel is within normal limits We went to completely evaluate the patient but it seems that the patient was eloped from the department's Time of 1ST Reevaluation: 15:21 Reevaluation 1ST: Unchanged Patient Education/Counseling: Diagnosis, Treatment, Prognosis Family Education/Counseling: Diagnosis, Treatment, Prognosis Departure 1 Departure Time of Disposition: 17:34 Impression: Primary Impression: Cannabinoid hyperemesis syndrome Additional Impression: Substance abuse Disposition: 07 LEFT AWOL/ELOPED Condition: Fair Critical Care Note Critical Care Time?: No Stability Stability form required: No I personally scribed for FRANNIE CHAMPION MD ([email or web address]) on 06/22/24 at 15:21. Electronically submitted by Crissy Fernandez ([facility]). FRANNIE CHAMPION MD Jun 22, 2024 15:21
[2024-06-22 17:00] LABS: Basophils # (auto) 0 10 ^3/uL (0-0.2); Eosinophils # (auto) 0 10 ^3/uL (0-0.8); Hemoglobin 8.2 g/dL (13.5-17.5); Monocytes # (auto) 0.3 10 ^3/uL (0-1.3); Neutrophils # (auto) 4.9 10 ^3/uL (1.6-8.6); White Blood Cell 5.5 10^3/uL (4.4-10.8)
[2024-06-22 17:02] LABS: Basophils % (auto) 0.2 % (0.0-2.0); Eosinophils % (auto) 0.4 % (0.0-7.0); Hematocrit 26.8 % (41.0-53.0); Lymphocytes # (auto) 0.3 10 ^3/uL (0.4-5.4); Lymphocytes % (auto) 5.1 % (10.0-50.0); Mean Corpuscular Hemoglobin 18.9 pg (28.0-32.0); Mean Corpuscular Hgb Conc. 30.6 g/dL (32.0-36.0); Mean Corpuscular Volume 61.6 fL (80.0-100.0); Monocytes % (auto) 5.4 % (0.0-12.0); Neutrophils % (auto) 88.9 % (37.0-80.0); Platelet Count (auto) 89 10^3/uL (140-450); Red Blood Cells 4.35 10^6/uL (4.5-5.90)
[2024-06-22 17:13] LABS: Alanine Aminotransferase 13 U/L (7-40); Albumin 4.5 g/dL (3.2-4.8); Alkaline Phosphatase 77 U/L (46-116); Anion Gap 8 (5-15); Aspartate Aminotransferase 14 U/L (13-40); BUN/Creatinine Ratio 16.7 (10.0-20.0); Blood Urea Nitrogen 10 mg/dL (9-23); Calcium 9.6 mg/dL (8.7-10.4); Carbon Dioxide 25 mmol/L (20-31); Chloride 106 mmol/L (98-107); Lipase 33 U/L (12-53); Potassium 3.9 mmol/L (3.5-5.1); Sodium 139 mmol/L (136-145)
[2024-06-22 17:14] LABS: Bilirubin, Total 0.6 mg/dL (0.2-1.0); Total Protein 7.7 g/dL (5.7-8.2)
[2024-06-22 17:15] LABS: Red Cell Distribution Width 20.3 % (11.8-14.3)
[2024-06-22 17:17] LABS: Glucose 157 mg/dL (74-106)
[2024-06-22 18:19] LABS: Anisocytosis Slight; Hypochromia Moderate; Large Platelets FEW
[2024-06-22 18:20] LABS: Platelet Estimate Decrea
== END | disposition left against medical advice (07) ==
LOC: ER 14:13
DX: R11.2 Nausea with vomiting, unspecified (principal); F12.90 Cannabis use, unspecified, uncomplicated; M54.50 Low back pain, unspecified; Z79.899 Other long term (current) drug therapy; Z88.5 Allergy status to narcotic agent
CPT/HCPCS: 36415; 80053; 83690; 85025